=== PATIENT | male | born 1955 | race Hispanic/Latino ===

== ENCOUNTER 2017-07-10 13:22 | Inpatient (IN) | payer OTHER, SELFPAY ==
[2017-07-10 14:43] LABS: Troponin I 0.011 ng/mL (< 0.028)
[2017-07-10 16:10] LABS: #Eosinphils 0.1 thou/uL (0.0-0.7); #Lymphocytes 0.9 thou/uL (1.20-3.40); #Monocytes 0.6 thou/uL (0.11-0.59); #Neutrophils 4.3 thou/uL (1.40-6.50); %Basophils 0.4 % (0.0-1.0); %Eosinophils 1.2 % (0.0-10.0); %Lymphocytes 15.7 % (21.0-51.0); %Monocytes 9.6 % (0.0-10.0); Hematocrit 40.6 % (42.0-52.0); Mean Platelet Volume 9.8 fL (7.4-10.4); Red Blood Cell (RBC) Count 4.14 mill/uL (4.70-6.10); White Blood Cell (WBC) Count 5.9 thou/uL (4.8-10.8)
[2017-07-10 16:20] LABS: ALT (SGPT) 28 U/L (8-55); AST (SGOT) 43 U/L (5-34); Alkaline Phosphatase 169 U/L (40-150); Anion Gap 14 mmol/L (10-20); BUN (Urea Nitrogen) 11 mg/dL (8.4-25.7); Bilirubin, Total 0.7 mg/dL (0.2-1.2); Calc. Creatinine Clearance 0 mL/min (70-130); Calcium 7.9 mg/dL (7.8-10.44); Carbon Dioxide 18 mmol/L (23-31); Chloride 94 mmol/L (98-107); Estimated GFR-MDRD Greater than 90; Globulin 2.8 g/dL (2.4-3.5); Protein, Total 6.1 g/dL (5.8-8.1)
--- NOTE | 2017-07-10 16:41 | HP ---
PRIMARY CARE PHYSICIAN: [facility] call admission. REASON FOR ADMISSION: Transfer from [facility] for hypertensive urgency and severe hyponatremia. HISTORY OF PRESENT ILLNESS: A 61-year-old male, who has alcoholism history, who went to [facility] with complaint of dizziness, headache, nausea, vomiting. Patient was also having vague epigastric discomfort. He was feeling hiccups and he was inducing vomiting. Patient was also feeling weak and tired. Patient reports that he is drinking almost 5-7 beers on a daily basis. His last drink was last night. He denies any melena or hematochezia. He denies any hematemesis. He denies any abdominal distention, but he does report some vague epigastric discomfort. He denies any fever or chills. He denies any UTI symptoms. He is not taking any NSAIDs. When he went to [facility], his blood pressure was very high. He was given parenteral blood pressure medication. After that, blood pressure was somewhat improved. He was transferred to our hospital for higher level of care. When he presented to our emergency room, his blood pressure already improved, but he required one dose of hydralazine. The patient is also given aspirin. REVIEW OF SYSTEMS: The following complete review of systems was negative, unless otherwise mentioned in the HPI or below: Constitutional: Weight loss or gain, ability to conduct usual activities. Skin: Rash, itching. Eyes: Double vision, pain. ENT/Mouth: Nose bleeding, neck stiffness, pain, tenderness. Cardiovascular: Palpitations, dyspnea on exertion, orthopnea. Respiratory: Shortness of breath, wheezing, cough, hemoptysis, fever, or night sweats. Gastrointestinal: Poor appetite, abdominal pain, heartburn, nausea, vomiting, constipation, or diarrhea. Genitourinary: Urgency, frequency, dysuria, nocturia. Musculoskeletal: Pain, swelling. Neurologic/Psychiatric: Anxiety, depression. Allergy/Immunologic: Skin rash, bleeding tendency. Please see my HPI for pertinent positives and negatives. All other review of systems reviewed and negative except as mentioned in the HPI. 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 PAST SURGICAL HISTORY: Left nephrectomy in 2012, laparotomy required for small- bowel obstruction. PAST PSYCHIATRIC HISTORY: Reviewed and negative. SOCIAL HISTORY: Patient is drinking about 5-7 beers on a daily basis. He smokes about half-pack per day. He lives at home with his family. He denies any other illicit drug abuse. FAMILY HISTORY: No strong family history of CAD, CVA or cancer. ALLERGIES: No known drug allergies. CURRENT HOME MEDICATIONS: The patient is not taking any prescribed or non- prescribed medication. The patient was discharged from the hospital on following medications, but he is not taking those medications; amlodipine 5 mg p.o. daily, folic acid 1 mg p.o. daily, multivitamin 1 tablet p.o. daily, thiamine 100 mg p.o. daily, Catapres patch transdermal every week. EMERGENCY ROOM COURSE: [facility] course reviewed. In our emergency room, patient is receiving IV fluid with NS, aspirin 324 mg, and hydralazine 10 mg. PHYSICAL EXAMINATION: VITAL SIGNS: On arrival, blood pressure 175/99, pulse 99, respiratory rate 22, temperature 98.0, saturation 96% on room air, weight 56.7 kilograms. GENERAL: Patient is currently alert, awake, no obvious acute distress. HEENT: Head: Normocephalic and atraumatic. Eyes: Pupils round and reactive to light. Extraocular muscles intact. ENT: Oropharynx within normal limits. Dry mucous membranes, no oral lesions, no pharyngeal erythema, no exudate. NECK: Supple. Range of motion is normal. No meningeal signs of irritation. LUNGS: Clear to auscultation without any rhonchi or rales. CARDIAC: S1, S2 regular, tachycardia, no murmur, no gallop, no rub. ABDOMEN: Soft. Epigastric discomfort, bowel sounds present, nontender, nondistended. No organomegaly, no mass, no suprapubic tenderness. BACK: Unremarkable, no CVA tenderness. EXTREMITIES: Upper extremity passive movement of all joints are normal. Lower extremities: No edema. Good peripheral pulsation. SKIN: No skin rash. HEMATOLOGICAL SYSTEM: No lymphadenopathy. PSYCHIATRIC: Anxious affect. SIGNIFICANT LABS: 1. CBC: WBC 4.9, hemoglobin 13.6, platelets 112. BMP: Sodium 119, potassium 3.9, chloride 90, carbon dioxide 19, anion gap 14, BUN 9.8, creatinine 0.7, glucose 91, calcium 8.3. 2. LFT: Bilirubin 0.6, alkaline phosphatase 94, AST 52, ALT 36, albumin 3.5, lipase 91. CK 47, CK-MB 2.4, troponin I less than 0.010, BNP 281. ASSESSMENT AND PLAN: 1. Severe symptomatic hyponatremia. 2. Hypertensive urgency. 3. Alcoholism. 4. Alcohol withdrawal syndrome. 5. Mild thrombocytopenia. 6. Epigastric abdominal pain. 7. Nausea and vomiting. 8. Dehydration. 9. Tobacco abuse disorder. PLAN: Admission to telemetry floor, banana bag 100 mL per hour, followed by NS 100 mL per hour, Pepcid 20 mg IV b.i.d., Reglan 10 mg q.6 hourly p.r.n., Zofran 4 mg q.6 hourly p.r.n. We will get abdomen ultrasound, right upper quadrant, to rule out any pathology. We will get x-ray of abdomen to rule out any acute process. We will check magnesium, phosphorus, and repeat labs today and tomorrow. We will watch for alcohol withdrawal syndrome. We will start with clear liquid diet and advance diet as tolerated. Deep vein thrombosis prophylaxis, Lovenox 40 mg subcu daily; gastrointestinal prophylaxis, Pepcid 20 mg IV b.i.d. CODE STATUS: The patient is full code. Disposition and plan based on clinical course. We will also send hyponatremia workup. [facility]
[2017-07-10] MEDS ORDERED: Sodium Chloride 0.9% 1,000 ML IV SCH (17:38)
[2017-07-10] MEDS ORDERED: Ondansetron HCl/PF 4 MG/2 ML Vial IVP PRN ×2 (17:38→18:25)
[2017-07-10] MEDS ORDERED: Ondansetron ODT 4 MG TAB SL PRN (17:38)
[2017-07-10 17:52] LABS: Troponin I 0.012 ng/mL (< 0.028)
[2017-07-10] MEDS ORDERED: Loperamide HCl 2 MG CAP PO PRN (18:25)
[2017-07-10] MEDS ORDERED: Diabetic Tussin 200 MG/10 ML UDCUP PO PRN (18:25)
[2017-07-10] MEDS ORDERED: Lorazepam 1 MG TAB PO PRN (18:25)
[2017-07-10] MEDS ORDERED: Zolpidem Tartrate 5 MG TAB PO PRN (18:25)
[2017-07-10] MEDS ORDERED: Loratadine 10 MG TAB PO PRN (18:25)
[2017-07-10] MEDS ORDERED: cloNIDine HCl 0.1 MG TAB PO PRN (18:25)
[2017-07-10] MEDS ORDERED: Ondansetron ODT 4 MG TAB PO PRN (18:25)
[2017-07-10] MEDS ORDERED: Sodium Chloride 0.65% Nasal 44 ML BOT EA NARE PRN (18:25)
[2017-07-10] MEDS ORDERED: Artificial Tears 18 DROP/0.9 ML EA EYE PRN (18:25)
[2017-07-10] MEDS ORDERED: Chloraseptic Spray 180 ml Bottle PO PRN (18:25)
[2017-07-10] MEDS ORDERED: Mag-Al 1200 mg/1200 mg/30 ML UDCUP PO PRN (18:25)
[2017-07-10] MEDS ORDERED: Eucerin (Mineral Oil/Petrolatum,White) 30 gm Jar TOP PRN (18:25)
[2017-07-10] MEDS ORDERED: Acetaminophen 325 MG TAB PO PRN (18:25)
[2017-07-10] MEDS ORDERED: Senokot 8.6 MG TAB PO PRN (18:25)
[2017-07-10] MEDS ORDERED: Metoclopramide HCl 10 MG/2 ML VIAL IVP PRN (18:25)
[2017-07-10] MEDS ORDERED: HYDROcodone/Acetaminophen 5/325 mg Tablet PO PRN (18:25)
[2017-07-10] MEDS ORDERED: Calcium Carbonate 500 MG ChewTAB PO PRN (18:25)
[2017-07-10] MEDS ORDERED: Milk Of Magnesia 30 ML UDCUP PO PRN (18:25)
[2017-07-10] MEDS: Sodium Chloride 0.9% 1,000 ML IV SCH (18:53)
[2017-07-10 19:41] LABS: Troponin I 0.014 ng/mL (< 0.028)
[2017-07-10 20:05] VITALS: BMI 20.7
[2017-07-10] MEDS: Famotidine/PF 20 mg/2ml Vial SLOW IVP SCH (20:53)
[2017-07-10] MEDS ORDERED: Multivitamins, Adult 10 ML, Folic Acid 1 MG, Thiamine HCl 100 MG in Dextrose 5 %-0.45 %... IV SCH ×4 (21:00)
--- NOTE | 2017-07-10 21:06 | RAD ---
AP ABDOMINAL RADIOGRAPH 07/10/17 HISTORY: Nausea and vomiting. FINDINGS: There is an overall nonspecific bowel gas pattern. Degenerative changes seen in the spine. There are calcifications overlying the pelvis bilaterally, likely related to combination of phleboliths and v ascular type calcifications. Metallic density overlies the lateral left hip which is probably relate d to overlying artifact and may represent overlying coin. Clinical correlation is recommended. IMPRESSION: Nonspecific bowel gas pattern. POS: KARIN
[2017-07-10 22:40] LABS: Bilirubin Negative (Negative); Blood, Urine Negative (Negative); Glucose, Urine (Dipstick) Negative (Negative); Ketone, Urine Trace mg/dL (Negative); Nitrite Negative (Negative); Protein, Urine (Dipstick) 300 mg/dL (Neg-Trace); Urobilinogen 0.2 mg/dL (0.2-1.0)
[2017-07-10 22:43] LABS: Bacteria/HPF None Seen HPF (None Seen); Hyaline Casts/LPF 0-3 HYALINE CAST LPF (0-3 Hyaline); RBC/HPF 0-3 HPF (0-3); Squamous Epithelial None Seen HPF (0-3); WBC/HPF None Seen HPF (0-3)
[2017-07-11 06:02] LABS: ALT (SGPT) 24 U/L (8-55); AST (SGOT) 35 U/L (5-34); Alkaline Phosphatase 147 U/L (40-150); Anion Gap 10 mmol/L (10-20); BUN (Urea Nitrogen) 11 mg/dL (8.4-25.7); Bilirubin, Total 0.9 mg/dL (0.2-1.2); Calc. Creatinine Clearance 85 mL/min (70-130); Calcium 7.9 mg/dL (7.8-10.44); Carbon Dioxide 19 mmol/L (23-31); Chloride 102 mmol/L (98-107); Estimated GFR-MDRD Greater than 90; Globulin 2.6 g/dL (2.4-3.5); Magnesium 1.8 mg/dL (1.6-2.6); Protein, Total 5.5 g/dL (5.8-8.1)
[2017-07-11 06:09] LABS: #Eosinphils 0.1 thou/uL (0.0-0.7); #Lymphocytes 0.8 thou/uL (1.20-3.40); #Monocytes 0.4 thou/uL (0.11-0.59); #Neutrophils 2.2 thou/uL (1.40-6.50); %Basophils 0.4 % (0.0-1.0); %Eosinophils 2.5 % (0.0-10.0); %Lymphocytes 21.5 % (21.0-51.0); Mean Platelet Volume 9.4 fL (7.4-10.4); Red Blood Cell (RBC) Count 3.35 mill/uL (4.70-6.10); White Blood Cell (WBC) Count 3.5 thou/uL (4.8-10.8)
--- NOTE | 2017-07-11 08:35 | ULT ---
ULTRASOUND ABDOMEN LIMITED: (RIGHT UPPER QUADRANT) HISTORY: A 61-year-old male with elevated liver enzymes. FINDINGS: The gallbladder has normal wall thickness and has no evidence of gallstones or sludge. The hepatic echogenicity is normal. The right kidney has normal echogenicity and has no hydronephrosis. The pa ncreas is visualized, although ultrasound is relatively insensitive for pancreatic pathology compare d to CT and MRI. There is no biliary dilation. The common duct caliber is 4 mm. IMPRESSION: Normal. merlin [] POS: KARIN
[2017-07-11] MEDS: Sodium Chloride 0.9% 1,000 ML IV SCH (08:40)
[2017-07-11] MEDS ORDERED: Potassium Chloride 20 MEQ TAB PO SCH (08:45)
[2017-07-11] MEDS ORDERED: FLU VACC QS2017-18 36 mo. & older 0.5 ML SYRINGE IM ONE (09:00)
[2017-07-11] MEDS: Famotidine/PF 20 mg/2ml Vial SLOW IVP SCH ×2 (10:26→20:38)
[2017-07-11] MEDS: Multivitamin W/ Minerals 1 TAB PO SCH (10:27)
[2017-07-11] MEDS: Cyanocobalamin (Vitamin B-12) 1,000 MCG TAB PO SCH (10:27)
[2017-07-11] MEDS: Folic Acid 1 MG TAB PO SCH (10:27)
[2017-07-11] MEDS: Metoprolol Tartrate 25 MG TAB PO SCH ×2 (10:27→20:38)
--- NOTE | 2017-07-11 13:01 | PDOC.PN ---
- Subjective Encounter Start Date: 07/11/17 Encounter Start Time: 08:45 -: old records requested/rev Patient seen and examined. No new complaints. No overnight events - Objective Resuscitation Status: Resuscitation Status FULL:Full Resuscitation MAR Reviewed: Yes Vital Signs & Weight: Vital Signs (12 hours) Temp Pulse Resp BP BP Pulse Ox 07/11/17 04:00 98.6 F 84 16 168/81 H 168/81 H 98 Weight Weight 123 lb I&O: 07/10/17 07/11/17 07/12/17 06:59 06:59 06:59 Intake Total 1460 Output Total 1675 Balance -215 Result Diagrams: 07/11/17 05:33 07/11/17 05:33 Radiology Reviewed by me: Yes EKG Reviewed by me: Yes Phys Exam - Physical Examination Constitutional: NAD HEENT: PERRLA, moist MMs, sclera anicteric Neck: no JVD, supple Respiratory: no wheezing, no rales, no rhonchi Cardiovascular: RRR, no significant murmur, no rub Gastrointestinal: soft, non-tender, no distention, positive bowel sounds Musculoskeletal: no edema, pulses present Neurological: non-focal, normal sensation, moves all 4 limbs Lymphatic: no nodes Psychiatric: normal affect, A&O x 3 Skin: no rash, normal turgor Dx/Plan (1) Epigastric abdominal pain Code(s): R10.13 - EPIGASTRIC PAIN Status: Resolved (2) Hyponatremia Code(s): E87.1 - HYPO-OSMOLALITY AND HYPONATREMIA Status: Acute (3) Nausea & vomiting Code(s): R11.2 - NAUSEA WITH VOMITING, UNSPECIFIED Status: Resolved (4) Chronic alcoholism Code(s): F10.20 - ALCOHOL DEPENDENCE, UNCOMPLICATED Status: Chronic Comment : (5) HTN (hypertension) Code(s): I10 - ESSENTIAL (PRIMARY) HYPERTENSION Status: Chronic Comment: (6) Macrocytic anemia Code(s): D53.9 - NUTRITIONAL ANEMIA, UNSPECIFIED Status: Chronic (7) Thrombocytopenia Code(s): D69.6 - THROMBOCYTOPENIA, UNSPECIFIED Status: Chronic (8) Tobacco dependence Code(s): F17.200 - NICOTINE DEPENDENCE, UNSPECIFIED, UNCOMPLICATED Status: Chronic Comment: - Plan cont current plan of care * will add metoprolol * add lisinopril * DC banana bag * start oral folic acid, thiamin, B12, theragran * medication reviewed as below * symptomatic treatment * DC tele * transfer to medical * expecting discharge to home tomorrow. * counselled extensively to quit alcohol and tobacco Review of Systems - Review of Systems ENT: negative: Ear Pain, Ear Discharge, Nose Pain, Nose Discharge, Nose Congestion, Mouth Pain, Mouth Swelling, Throat Pain, Throat Swelling, Other Respiratory: negative: Cough, Dry, Shortness of Breath, Hemoptysis, SOB with Excertion, Pleuritic Pain, Sputum, Wheezing Cardiovascular: negative: Chest Pain, Palpitations, Orthopnea, Paroxysmal Noc. Dyspnea, Edema, Light Headedness, Other Gastrointestinal: negative: Nausea, Vomiting, Abdominal Pain, Diarrhea, Constipation, Melena, Hematochezia, Other Genitourinary: negative: Dysuria, Frequency, Incontinence, Hematuria, Retention , Other Musculoskeletal: negative: Neck Pain, Shoulder Pain, Arm Pain, Back Pain, Hand Pain, Leg Pain, Foot Pain, Other Skin: negative: Rash, Lesions, Brennan, Bruising, Other - Medications/Allergies Allergies/Adverse Reactions: Allergies Allergy/AdvReac Type Severity Reaction Status Date / Time No Known Drug Allergies Allergy Verified 07/10/17 20:14 Medications: Current Medications Acetaminophen (Tylenol) 650 mg PO Q4H PRN PRN Reason: Headache/Fever or Pain Hydrocodone Bitart/Acetaminophen (Munising 5/325) 1 tab PO Q4H PRN PRN Reason: Moderate Pain (4-6) Al Hydroxide/Mg Hydroxide (Maalox) 30 ml PO Q6H PRN PRN Reason: Heartburn or Indigestion Artificial Tears (Tears Naturale) 0 drop EA EYE PRN PRN PRN Reason: Dry Eyes Calcium Carbonate (Tums) 1,000 mg PO Q4H PRN PRN Reason: Heartburn or Indigestion Clonidine HCl (Catapres) 0.1 mg PO Q4H PRN PRN Reason: Systolic BP > 180 Cyanocobalamin (Vitamin B-12) 1,000 mcg PO DAILY [facility] Last Admin: 07/11/17 10:27 Dose: 1,000 mcg Famotidine (Pepcid) 20 mg SLOW IVP Q12HR [facility] Last Admin: 07/11/17 10:26 Dose: 20 mg Folic Acid (Folvite) 1 mg PO DAILY [facility] Last Admin: 07/11/17 10:27 Dose: 1 mg Guaifenesin (Robitussin Sf) 200 mg PO Q4H PRN PRN Reason: Cough Hydralazine HCl (Apresoline) 10 mg SLOW IVP Q4H PRN PRN Reason: Systolic BP > 180 Iron/Minerals/Multivitamins (Theragran M) 1 tab PO DAILY [facility] Last Admin: 07/11/17 10:27 Dose: 1 tab Loperamide HCl (Imodium) 2 mg PO PRN PRN PRN Reason: Diarrhea/Loose Stools Loratadine (Claritin) 10 mg PO DAILYPRN PRN PRN Reason: Sinus Symptoms Lorazepam (Ativan) 1 mg PO Q4H PRN PRN Reason: Anxiety/Agitation Magnesium Hydroxide (Milk Of Magnesium) 30 ml PO DAILYPRN PRN PRN Reason: Constipation Metoclopramide HCl (Reglan) 10 mg IVP Q6H PRN PRN Reason: Nausea/Vomiting Metoprolol Tartrate (Lopressor) 25 mg PO BID [facility] Last Admin: 07/11/17 10:27 Dose: 25 mg Mineral Oil/White Petrolatum (Eucerin Cream) 0 gm TOP BIDPRN PRN PRN Reason: Dry Skin Ondansetron HCl (Zofran Odt) 4 mg PO Q6H PRN PRN Reason: Nausea/Vomiting Ondansetron HCl (Zofran) 4 mg IVP Q6H PRN PRN Reason: Nausea/Vomiting Phenol (Chloraseptic Hilbert 180 Ml Bot) 0 ml PO PRN PRN PRN Reason: Sore Throat Senna (Senokot) 2 tab PO HSPRN PRN PRN Reason: Constipation Sodium Chloride ([place] Nasal Hilbert 0.65%) 0 ml EA NARE QIDPRN PRN PRN Reason: Nasal Congestion Sodium Chloride (Flush - Normal Saline) 10 ml IVF Q12HR [facility] Last Admin: 07/11/17 10:27 Dose: 10 ml Sodium Chloride (Flush - Normal Saline) 10 ml IVF PRN PRN PRN Reason: Saline Flush Thiamine HCl (Thiamine) 100 mg PO DAILY [facility] Last Admin: 07/11/17 10:27 Dose: 100 mg Zolpidem Tartrate (Ambien) 5 mg PO HSPRN PRN PRN Reason: Insomnia
[2017-07-11] MEDS ORDERED: Lisinopril 10 MG TAB PO SCH (13:15)
[2017-07-11] MEDS ORDERED: Nicotine 14 MG PATCH TOP SCH (22:00)
[2017-07-12 07:43] LABS: #Eosinphils 0.1 thou/uL (0.0-0.7); #Lymphocytes 0.5 thou/uL (1.20-3.40); #Monocytes 0.5 thou/uL (0.11-0.59); #Neutrophils 2.9 thou/uL (1.40-6.50); %Eosinophils 1.7 % (0.0-10.0); %Lymphocytes 13.7 % (21.0-51.0); %Monocytes 11.5 % (0.0-10.0); Hematocrit 36.2 % (42.0-52.0); Mean Platelet Volume 9.6 fL (7.4-10.4); Red Blood Cell (RBC) Count 3.61 mill/uL (4.70-6.10); White Blood Cell (WBC) Count 3.9 thou/uL (4.8-10.8)
[2017-07-12 07:46] LABS: Anion Gap 11 mmol/L (10-20); BUN (Urea Nitrogen) 14 mg/dL (8.4-25.7); Calc. Creatinine Clearance 80 mL/min (70-130); Calcium 8.4 mg/dL (7.8-10.44); Carbon Dioxide 19 mmol/L (23-31); Chloride 107 mmol/L (98-107); Estimated GFR-MDRD Greater than 90
[2017-07-12] MEDS: Famotidine/PF 20 mg/2ml Vial SLOW IVP SCH (08:52)
[2017-07-12] MEDS: Cyanocobalamin (Vitamin B-12) 1,000 MCG TAB PO SCH (08:52)
[2017-07-12] MEDS: Folic Acid 1 MG TAB PO SCH (08:52)
[2017-07-12] MEDS: Metoprolol Tartrate 25 MG TAB PO SCH (08:52)
[2017-07-12] MEDS: Multivitamin W/ Minerals 1 TAB PO SCH (08:52)
[2017-07-12] MEDS ORDERED: Lisinopril 10 MG TAB PO SCH (09:00)
[2017-07-12 09:25] VITALS: BP 176/80; TEMP 97.8
--- NOTE | 2017-07-12 09:34 | DIS ---
PRIMARY CARE PHYSICIAN: [facility] call admission. DATE OF ADMISSION: 07/10/2017 DATE OF DISCHARGE: 07/12/2017 DISCHARGE DISPOSITION: Home. PRIMARY DISCHARGE DIAGNOSES: 1. Severe hyponatremia due to beer potomania, improved. 2. Uncontrolled hypertension due to medication noncompliance. 3. Nausea and vomiting due to alcohol abuse, improved. 4. Epigastric abdominal pain, likely due to gastritis, improved. SECONDARY DISCHARGE DIAGNOSES: Tobacco abuse disorder, alcohol abuse disorder, chronic thrombocytopenia, macrocytic anemia, history of hypertension and medical noncompliance. PRIMARY PROCEDURE/OPERATION: None. RADIOLOGICAL INVESTIGATION: Abdomen x-ray was normal. Chest x-ray was normal. Abdominal ultrasound was normal. SIGNIFICANT LABS: WBC 3.9, hemoglobin 12.0, MCV 100, platelets 93. Sodium 133 , potassium 3.6, BUN 14, carbon dioxide 19, creatinine 0.76, calcium 8.4, AST 35 , ALT 24, alkaline phosphatase 147, albumin 2.9, TSH 3.62. Serum cortisol 12.4. Cardiac enzymes negative x3. Urinalysis normal. DISCHARGE MEDICATIONS: Metoprolol 25 mg p.o. b.i.d., lisinopril 10 mg p.o. b.i.d., vitamin B12 1000 mcg p.o. daily, Pepcid 20 mg p.o. b.i.d., folic acid 1 mg p.o. daily, multivitamin 1 tablet p.o. daily, MiraLax 17 grams p.o. daily, thiamine 100 mg p.o. daily, tramadol 50 mg p.o. q.6 hourly p.r.n. CONTRAINDICATIONS: None. CODE STATUS: FULL CODE. INPATIENT CONSULTANTS: None. ALLERGIES: No known drug allergies. DISCHARGE PLAN: Post hospital, the patient is advised to follow up with primary care physician for outpatient treatment. HOSPITAL COURSE: The patient is a 61-year-old male with the above mentioned medical problems who is noncompliant and he is not taking any medication and he continued to drink alcohol heavily. He went to other emergency room for nausea , vomiting, epigastric abdominal pain and he was transferred to our hospital. His sodium on admission was 119 and that was related with beer potomania. This patient also had hypertension and we started during this admission metoprolol and lisinopril. He was symptomatically treated with Pepcid and Zofran while in hospital with significant clinical improvement. He was initially admitted to telemetry floor for observation, but subsequently when he did not have any cardiac etiology we discontinued the telemetry floor and moved him to medical floor. His blood pressure was not still well controlled, but we are adjusting blood pressure medication here today as well. He is completely asymptomatic. He does not have any nausea, vomiting. He does not have any epigastric abdominal pain. As long as he will take his medication and follow ups with primary care physician and he will be fine. As well, he is given counseling to avoid tobacco and alcohol product. Today, I saw this patient at bedside personally and examined. VITAL SIGNS: His temperature 98.1, blood pressure 180/87, pulse 77, respiratory rate 18, saturation 97% on room air, weight 123 pounds. GENERAL: The patient is currently alert, awake, no acute distress. HEAD: Normocephalic, atraumatic. EYES: Pupils round, reactive to light. Extraocular muscle intact. ENT: Oropharynx within normal limits. Moist mucous membranes. No oral lesions. No pharyngeal erythema, no exudate. NECK: Supple, range of motion is normal. LUNGS: Clear to auscultation. ABDOMEN: Soft and benign without any tenderness. NEUROLOGIC: Grossly nonfocal examination. While in hospital, he did not have any withdrawal symptoms. Overall, the patient is medically stable for discharge today. Total time spent on discharge day more than 30 minutes. MTDD
== END 2017-07-12 11:28 | disposition home or self-care (01) | DRG 641 ==
LOC: ERS 13:22 → 2NO 15:00 → T4-A 07-11 17:54
PROVIDERS: ADMIT Internal Medicine; ATTEND Internal Medicine
DX: E87.1 Hypo-osmolality and hyponatremia (principal); D69.6 Thrombocytopenia, unspecified; I10 Essential (primary) hypertension; E86.0 Dehydration; I16.0 Hypertensive urgency; F10.20 Alcohol dependence, uncomplicated; J44.9 Chronic obstructive pulmonary disease, unspecified; F17.210 Nicotine dependence, cigarettes, uncomplicated; Z91.14 Patient's other noncompliance with medication regimen; D52.0 Dietary folate deficiency anemia; K29.70 Gastritis, unspecified, without bleeding
CPT/HCPCS: 36415; 74000; 76705; 80048; 80053; 81001; 82533; 82553; 82570; 83605; 83735; 83930; 83935; 84100; 84300; 84443; 84484; 85025; 90471; 90682; 90732; 93005; 96361; 96374; A4216; G0008; G0009; J0360; J3411; J7042; Q2036; S0028

== ENCOUNTER 2018-10-08 17:44 | Inpatient (IN) | payer OTHER, SELFPAY ==
[2018-10-08] MEDS ORDERED: Propofol 1,000 MG/100 ML VIAL IV ONE (17:46)
[2018-10-08] MEDS ORDERED: Morphine 4 MG/ML VIAL ONE (18:08)
[2018-10-08 18:13] LABS: Actual Bicarbonate (HCO3a) 21.9 mEq/L (22-28); Analyzer IN Cardio ER; Base Excess (BEa) -2.8 mEq/L (-2.0 to +3.0); CO2 Tension 37.9 mmHg (35.0-45.0); Calcium, Ionized 1.06 mmol/L (1.12-1.30); Carboxyhemoglobin (COHb) 5.3 gm% (0.0-3.0); Hemoglobin (Hb) 11.6 g/dL (14.0-18.0); O2 Tension (PaO2) 71.5 mmHg (> 80.0); Potassium - ABG Lab 3.72 mmol/L (3.70-5.30); pH, Arterial 7.38 (7.35-7.45)
[2018-10-08 18:14] LABS: ALV-art Gradient 237.625 (0-20); Puncture Site L.R.
[2018-10-08 18:24] LABS: #Eosinphils 0.1 thou/uL (0.0-0.7); #Lymphocytes 0.7 thou/uL (1.20-3.40); #Monocytes 0.4 thou/uL (0.11-0.59); #Neutrophils 5.7 thou/uL (1.40-6.50); %Basophils 0.5 % (0.0-1.0); %Eosinophils 1.1 % (0.0-10.0); %Lymphocytes 10.4 % (21.0-51.0); Hemoglobin 11.1 g/dL (14.0-18.0); Mean Corpuscular HGB CONC 33.1 g/dL (32.0-36.0); Mean Corpuscular Hemoglobin 29.5 pg (27.0-31.0); Mean Corpuscular Volume 89.2 fL (78.0-98.0); Mean Platelet Volume 9.6 fL (7.4-10.4); Platelet Count 148 thou/uL (130-400); RBC Distribution Width 17.1 % (11.5-14.5); Red Blood Cell (RBC) Count 3.75 mill/uL (4.70-6.10)
[2018-10-08 18:30] LABS: PTT 35.4 SEC (22.9-36.1)
[2018-10-08 18:38] LABS: Prothrombin Time 13.6 SEC (12.0-14.7)
[2018-10-08] MEDS ORDERED: Adacel (T-DAP) 0.5 ML SYRINGE ONE (18:39)
[2018-10-08] MEDS ORDERED: CEFAZOLIN 2 GM/50 ML BAG ONE (18:39)
[2018-10-08 18:44] LABS: ALT (SGPT) 22 U/L (8-55); AST (SGOT) 52 U/L (5-34); Albumin 3.5 g/dL (3.4-4.8); Alkaline Phosphatase 184 U/L (40-150); Anion Gap 15 mmol/L (10-20); BUN (Urea Nitrogen) 15 mg/dL (8.4-25.7); Bilirubin, Total 0.5 mg/dL (0.2-1.2); Calc. Creatinine Clearance 0 mL/min (70-130); Calcium 8.5 mg/dL (7.8-10.44); Carbon Dioxide 19 mmol/L (23-31); Chloride 98 mmol/L (98-107); Estimated GFR-MDRD 63; Globulin 3.2 g/dL (2.4-3.5); Glucose 107 mg/dL (80-115); Potassium 3.9 mmol/L (3.5-5.1); Protein, Total 6.7 g/dL (5.8-8.1); Sodium 128 mmol/L (136-145)
[2018-10-08] MEDS ORDERED: Ondansetron PF 4 MG/2 ML Vial IVP PRN (18:53)
[2018-10-08] MEDS ORDERED: Bisacodyl 10 MG SUPP PR PRN (18:53)
[2018-10-08] MEDS ORDERED: CCU Electrolyte Replacement 1 EACH FS ONE (18:58)
[2018-10-08] MEDS ORDERED: niCARdipine 20MG In NaCl 20 MG/200 ML BAG ONE (19:04)
[2018-10-08 19:34] LABS: Bilirubin Negative (Negative); Blood, Urine Moderate (Negative); Clarity CLEAR (Clear); Glucose, Urine (Dipstick) Negative (Negative); Leukocyte Negative (Negative); Nitrite Negative (Negative); Protein, Urine (Dipstick) 300 mg/dL (Neg-Trace); Specific Gravity, Urine 1.008 (1.002-1.036); Urobilinogen 0.2 mg/dL (0.2-1.0); pH, Urine 6.5 (5.0-9.0)
[2018-10-08 19:36] LABS: Bacteria/HPF None Seen HPF (None Seen); Hyaline Casts/LPF 0-3 HYALINE CAST LPF (0-3 Hyaline); Pathc Cast-AUWi Flag 0.87 (0-2.49); RBC/HPF 0-3 HPF (0-3); Squamous Epithelial 0-3 HPF (0-3); WBC/HPF None Seen HPF (0-3)
[2018-10-08 19:45] LABS: Amphetamine Not Detected (NotDetected); Barbiturates Screen Not Detected (NotDetected); Benzodiazepine Screen Not Detected (NotDetected); Cocaine Metabolite Screen Not Detected (NotDetected); Medtox Control Line Valid? VALID (VALID); Medtox Reader # READER 1; Methadone Not Detected (NotDetected); Methamphetamine Not Detected (NotDetected); Opiate Screen Not Detected (NotDetected); Oxycodone Screen Not Detected (NotDetected); Phencyclidine (PCP) Not Detected (NotDetected); THC/Cannabinoid Screen Not Detected (NotDetected); Tricyclic Screen Not Detected (NotDetected)
--- NOTE | 2018-10-08 20:19 | RAD ---
PORTABLE CHEST: 10/08/18 PROVIDED CLINICAL HISTORY: Respiratory insufficiency. FINDINGS: Comparison is made with the examination performed earlier same date. Endotracheal tube is again noted, the tip of which has migrated somewhat distally from its former pos ition but remains at the level of the lopez. Enteric catheter has been placed. The proximal side hol e lucency of which projects over the lower thoracic spine and the distal tip of which projects over t he expected location of the distal esophagus and could be advanced. Right infrahilar density may refl ect subsegmental atelectasis or pneumonitis. There is no pleural fluid or pneumothorax apparent. IMPRESSION: 1. Enteric catheter positioning as above. 2. Right infrahilar density may reflect subsegmental atelectasis or pneumonitis. Followup is recommen ded. POS: KARIN
[2018-10-08] MEDS ORDERED: Potassium Phosphate 15 MMOL in Sodium Chloride 0.9% 250 ML 250 ML IV PRN (20:46)
[2018-10-08] MEDS ORDERED: Potassium Phosphate 9 MMOL in Sodium Chloride 0.9% 100 ML IVPB PRN (20:46)
[2018-10-08] MEDS ORDERED: CCU ELECTROLYTE REPLACEMENT PROTOCOL FS PRN (20:46)
[2018-10-08] MEDS ORDERED: Magnesium Oxide 400 MG TAB PO PRN ×2 (20:46)
[2018-10-08] MEDS ORDERED: Potassium Chloride 40 MEQ in Sodium Chloride 0.9% 250 ML 250 ML IVPB PRN (20:46)
[2018-10-08] MEDS ORDERED: Magnesium 2 GM/NS 0.9% 100 ML 2 GM in Premix Bag 1 BAG IVPB PRN (20:46)
[2018-10-08] MEDS ORDERED: Potassium Chloride 40 MEQ in Premix Bag 1 BAG IVPB PRN (20:46)
[2018-10-08] MEDS ORDERED: Potassium Phosphate 12 MMOL in Sodium Chloride 0.9% 250 ML 250 ML IV PRN (20:46)
[2018-10-08] MEDS ORDERED: Potassium Chloride 20 MEQ TAB PO PRN (20:46)
--- NOTE | 2018-10-08 21:17 | PDOC.FPRHP ---
- History of Present Illness Chief Complaint: medical management following non-traumatic hemorrhagic CVA History of Present Illness: 63 yr old male with PMH of HTN, medication non-compliance, alcohol abuse who presents to ER after being found slumped over in a bathroom. History is all taken from ER notes/report. Originally there were no family at bedside however upon reexamination couple hours later his daughters are at bedside. They speak with him frequently, but are unsure where he currently lives because he does not know his physical address and recently moved. They report daily alcohol use for many years. Now he likely drinks about 6 beers a day but it used to be much more. He smoke daily. He does not regularly follow up with a doctor or refill his medications. - Allergies/Adverse Reactions Allergies Allergy/AdvReac Type Severity Reaction Status Date / Time No Known Drug Allergies Allergy Verified 07/10/17 20:14 - Home Medications Comments: Unable to obtain medication list. Family reports that he is non compliant with meds. - History PMHx: HTN, left kidney tumor, COPD, daily alcohol abuse PSHx: left nephrectomy, laparotomy for SBO (hx obtained from 2017 H&P) FHx: unable to obtain Social: Daily alcohol use (at least 6 beers a day per family), smokes 1 PPD, unknown drug use. - Review of Systems ROS unobtainable: due to endotracheal tube (patient unarrousable) - Vital signs BP: [] HR: [] RR: [] Tmax: [] Pox: []% on [] Wt: [] - Physical Exam -Constitutional: intubated, unresponsive not on sedation Neck: supple, trachea midline Heart: RRR, normal S1/S2, no murmurs/rubs/gallops Lungs: CTAB, no respiratory distress, good air movement, no wheezing Abdomen: soft, bowel sounds present Musculoskeletal: normal structure, normal tone -Neurological: bilateral positive babinski (upgoing), 2-3 + clonus bilaterally, pinpoint pupils , appears to have decerebrate posturing Skin: no rash/lesions, capillary refill <2 seconds FMR H&P: Results - Labs Result Diagrams: 10/08/18 18:12 10/08/18 18:12 Lab results: WBC 7.0 thou/uL (4.8-10.8) 10/08/18 18:12 Hgb 11.1 g/dL (14.0-18.0) L 10/08/18 18:12 Hct 33.5 % (42.0-52.0) L 10/08/18 18:12 MCV 89.2 fL (78.0-98.0) 10/08/18 18:12 Plt Count 148 thou/uL (130-400) 10/08/18 18:12 Neutrophils % 82.0 % (42.0-75.0) H 10/08/18 18:12 ABG pH 7.38 (7.35-7.45) 10/08/18 18:09 ABG pCO2 37.9 mmHg (35.0-45.0) 10/08/18 18:09 ABG pO2 71.5 mmHg (> 80.0) 10/08/18 18:09 Sodium 128 mmol/L (136-145) L 10/08/18 18:12 Potassium 3.9 mmol/L (3.5-5.1) 10/08/18 18:12 Chloride 98 mmol/L (98-107) 10/08/18 18:12 Carbon Dioxide 19 mmol/L (23-31) L 10/08/18 18:12 BUN 15 mg/dL (8.4-25.7) 10/08/18 18:12 Creatinine 1.16 mg/dL (0.7-1.3) 10/08/18 18:12 Glucose 107 mg/dL (80-115) 10/08/18 18:12 Calcium 8.5 mg/dL (7.8-10.44) 10/08/18 18:12 Total Bilirubin 0.5 mg/dL (0.2-1.2) 10/08/18 18:12 AST 52 U/L (5-34) H 10/08/18 18:12 ALT 22 U/L (8-55) 10/08/18 18:12 Alkaline Phosphatase 184 U/L (40-150) H 10/08/18 18:12 Serum Total Protein 6.7 g/dL (5.8-8.1) 10/08/18 18:12 Albumin 3.5 g/dL (3.4-4.8) 10/08/18 18:12 Urine Ketones Negative mg/dL (Negative) 10/08/18 19:00 Urine Blood Moderate (Negative) H 10/08/18 19:00 Urine Nitrite Negative (Negative) 10/08/18 19:00 Ur Leukocyte Esterase Negative (Negative) 10/08/18 19:00 Urine RBC 0-3 HPF (0-3) 10/08/18 19:00 Urine WBC None Seen HPF (0-3) 10/08/18 19:00 Ur Squamous Epith Cells 0-3 HPF (0-3) 10/08/18 19:00 Urine Bacteria None Seen HPF (None Seen) 10/08/18 19:00 FMR H&P: A/P - Plan Disposition/LOS: 63 yr old male non-traumatic intracerebral hemorrhage likely 2/2 severe uncontrolled HTN -mgmt per neurosurgery -patient currently on cardene drip HTN -currently on cardene drip -monitor overnight, with BP goals per neurosurgery Alcohol abuse -currently non responsive and not on sedation -will monitor for signs of withdrawal - BAL is undetectable elevated ALT -likely 2/2 alcohol abuse -consider checking HIV, hep C if becomes clinically relevant Code Status: FULL Diet: NPO PCP: unknown DVT ppx: anticoagulant contraindicated, will apply SCDs Addendum - Attending - Attending Attestation Date/Time: 10/08/18 [id number] I personally evaluated the patient and discussed the management with Dr. Yee I agree with the History, Examination, Assessment and Plan documented above with any addition or exceptions noted below- Consulted by neurosurgery for assistance with medical management of chronic medical problems of this 63 yo male with h/o HTN and alcohol abuse who was transferred from [facility] after being found unresponsive in bathroom. Evaluation at [facility] showed a large right basal ganglia hemorrhage extending into right lateral ventricle and 3rd and 4th ventricle. Patient also hypertensive at [facility] and intubated upon transfer. PMH/PSH/Meds/All reviewed and agree with resident's documentation. Afebrile BP 163/80 P75 98% Exam repeated by me and agree with resident's findings including bilateral upgoing Babinski's, clonus in LE. Labs: WBC=7.0, H/H=11.1/33.5, Umh=145, Fz=461, K=3.9, Cl=98, CO2=19, BUN/ Cr=15/1.16, Gluc= 107, AST/ALT= 15/22, Alk Phos-184, UDS negative, ETOH<10A A/P: 1) Hemorrhagic CVA s/p ventriculostomy placement- plans/management as per neurosurgery; suspect poor prognosis. 2) HTN - continue cardene drip with goal of SBP<160, 3) h/o EtOH abuse- monitor for withdrawal.
[2018-10-08] MEDS: Famotidine/PF 20 mg/2ml Vial SLOW IVP SCH (21:27)
[2018-10-08] MEDS: Sodium Chloride 0.9% 1,000 ML IV SCH (21:32)
[2018-10-08 21:38] LABS: Acetaminophen Less than 6.0 mcg/mL (10.0-30.0); Alcohol Less than 10 mg/dL (Less than 10); Salicylate Less than 8.0 mg/dL (15.0-30.0)
--- NOTE | 2018-10-08 21:55 | HP ---
HISTORY OF PRESENT ILLNESS: Mr. Felton is a 63-year-old man who is a transfer from [facility] via EMS after being found down by a friend in the bathroom at home. At that time, he was hemiparetic on the left and increasingly somnolent. Ultimately, he was intubated in [place]. CT scan performed in that emergency department revealed a large right-sided basal ganglia hemorrhage with extension into the right lateral ventricle, the third ventricle, and fourth ventricle, all three of these were completely cast with blood and hydrocephalic. The patient is in minor extension of blood into the left lateral ventricle as well. There was no midline shift to speak of, that would be obstructive hydrocephalus hydrocephalus, is likely increasing with intracranial pressure. There is no known medical history other than that he is hypertensive. No family was able to be contacted. No friends or family were at bedside upon my arrival to the emergency department. The patient is intubated on the bed. He had had some sedatives, roughly 45 minutes prior to his arrival, but since being in the department, nothing else. Again, past medical history unobtainable. Medical history including surgeries, medications, allergies, and otherwise also unobtainable. PHYSICAL EXAMINATION: The patient's pupils are equally round, but constricted, and unreactive. He does maintain a corneal reflex gag reflex and cough reflex. He does not open his eyes at any point. He does not move his upper extremities to any deep stimulus. He does withdraw bilateral lower extremities to deep pain, specifically pressure. ASSESSMENT: Intracerebral hemorrhage and intraventricular extension of hemorrhage. PLAN: At this time we will need emergent placement of external ventricular catheter, and will need admission to the ICU with every one hour neuro checks. Head of bed elevated at 30 degrees. Pulmonary, Critical Care, and hospitalist service will be consulted for management. We will continue to try to reach family for better detailed medical history. Coagulation labs were being run in the emergency department as we do not know if he is on any blood thinners or not. No other intervention is planned. Job ID: [id number]
--- NOTE | 2018-10-08 23:51 | OP ---
PROCEDURE DESCRIPTION: External ventricular drain placement. INDICATION: Altered mental status, Interventricular hemorrhage, obstructive hydrocephalus. CLINICAL: Ender Whittaker, PAC DESCRIPTION OF PROCEDURE: Elyse's point was identified in the right frontal scalp. This region was marked and infiltrated with 1% lidocaine. The area was then prepped and draped. Surgical procedure was followed from this point on. 15 blade scalpel was used to incise the scalp at Elyse's point down to the periosteum. Cranial twist drill was used to create a bur hole at this point of incision. The dura was pierced with a blunt object and ventricular catheter was placed at a depth of 6 cm. There was slow egress of bety blood via the catheter which was pulsatile within the tubing. This was adhered to the scalp with Nylon suture. This was hooked up to a Mo drain at 5 cm of water. Level to the tragus. Incision was closed with 3-0 Resolon sutures. Patient tolerated the procedure well with no complication. [facility]ITAL[facility]
[2018-10-09] MEDS: CEFAZOLIN 2 GM/50 ML-DEXTROSE 2 GM in Premix Bag 1 BAG IVPB SCH ×3 (01:38→18:08)
[2018-10-09] MEDS ORDERED: CEFAZOLIN 1 GM VIAL SLOW IVP SCH (03:00)
[2018-10-09 05:36] LABS: Anion Gap 11 mmol/L (10-20); BUN (Urea Nitrogen) 16 mg/dL (8.4-25.7); Calc. Creatinine Clearance 47 mL/min (70-130); Calcium 7.8 mg/dL (7.8-10.44); Carbon Dioxide 21 mmol/L (23-31); Chloride 101 mmol/L (98-107); Estimated GFR-MDRD 60; Glucose 89 mg/dL (80-115); Potassium 3.3 mmol/L (3.5-5.1); Sodium 130 mmol/L (136-145)
[2018-10-09 06:30] LABS: #Lymphocytes 0.5 thou/uL (1.20-3.40); #Monocytes 0.5 thou/uL (0.11-0.59); %Basophils 0.4 % (0.0-1.0); %Eosinophils 0.7 % (0.0-10.0); %Lymphocytes 7.9 % (21.0-51.0); %Monocytes 7.6 % (0.0-10.0); %Neutrophils 83.5 % (42.0-75.0); Hemoglobin 9.4 g/dL (14.0-18.0); Mean Corpuscular HGB CONC 32.6 g/dL (32.0-36.0); Mean Corpuscular Hemoglobin 28.8 pg (27.0-31.0); Mean Corpuscular Volume 88.3 fL (78.0-98.0); Mean Platelet Volume 10.4 fL (7.4-10.4); Platelet Count 120 thou/uL (130-400); RBC Distribution Width 17.2 % (11.5-14.5); Red Blood Cell (RBC) Count 3.27 mill/uL (4.70-6.10)
--- NOTE | 2018-10-09 06:30 | PDOC.FM ---
- Subjective Subjective: This morning patient is un-responsive, on ventilator, no sedation currently. He was brought in after being found down. Family and chart show history of alcoholism. Family also reported history of non-compliance with medication. Family is not at bedside this AM. Daughter was present last night. - Objective Vital Signs & Weight: Vital Signs (12 hours) Temp Resp Pulse Ox 10/09/18 04:00 98.4 F 21 H 10/09/18 02:00 19 10/09/18 00:00 98.2 F 16 10/08/18 22:00 16 10/08/18 20:00 98.3 F 19 97 Weight Weight 53.8 kg Most Recent Monitor Data Heart Rate from ECG 100 NIBP 143/68 NIBP BP-Mean 93 Respiration from ECG 22 SpO2 99 I&O: 10/07/18 10/08/18 10/09/18 06:59 06:59 06:59 Intake Total 50 Output Total 1087 Balance -1037 Result Diagrams: 10/09/18 04:58 10/09/18 04:58 Phys Exam - Physical Examination Respiratory: clear to auscultation bilateral on ventilator Cardiovascular: RRR, no significant murmur Gastrointestinal: soft, non-tender, no distention, positive bowel sounds Musculoskeletal: pulses present non-responsive, upgoing babinski, 3/4 reflexes on lower extremities Skin: cap refill <2 seconds Dx/Plan (1) Basal ganglia hemorrhage Code(s): I61.0 - NONTRAUMATIC INTCRBL HEMORRHAGE IN HEMISPHERE, SUBCORTICAL Status: Acute (2) Hyponatremia Code(s): E87.1 - HYPO-OSMOLALITY AND HYPONATREMIA Status: Acute (3) Chronic alcoholism Code(s): F10.20 - ALCOHOL DEPENDENCE, UNCOMPLICATED Status: Chronic (4) HTN (hypertension) Code(s): I10 - ESSENTIAL (PRIMARY) HYPERTENSION Status: Chronic (5) Tobacco dependence Code(s): F17.200 - NICOTINE DEPENDENCE, UNSPECIFIED, UNCOMPLICATED Status: Chronic - Plan Plan: # non-traumatic intracerebral hemorrhage likely 2/2 severe uncontrolled HTN - non-compliant with meds per family - external ventricular drain placed 10/08 - repeat CT this AM, read pending - mgmt per neurosurgery # HTN - patient currently on cardene drip, goal of <160 sbp per neurosurgery -monitor overnight, with BP goals per neurosurgery # Alcohol abuse -currently non responsive and not on sedation - will monitor for signs of withdrawal - BAL is undetectable # elevated ALT -likely 2/2 alcohol abuse -consider checking HIV, hep C if becomes clinically relevant # Hypokalemia - replete PRN # Hyponatremia - monitor Code Status: FULL Diet: NPO PCP: unknown DVT ppx: anticoagulant contraindicated, will apply SCDs Addendum - Attending - Attending Attestation Date/Time: 10/09/18 1025 I personally evaluated the patient and discussed the management with Dr. Parker. I agree with the History, Examination, Assessment and Plan documented above with any addition or exceptions noted below. Consult on case for medical mgmt in patient with COPD, EtOH abuse, and HTN who is here for ICH in the basal ganglia area s/p ventriculostomy placement. CT this morning appears to have further midline shift and NSGY has replaced tube. Continues on Cardene but will work to get BP under control with PO meds. Minimal response, some spontaneous movements though this may represent myoclonic jerks. Prognosis guarded. We will be available to co-manage COPD, EtOH withdrawal (if occurs) and HTN as needed.
[2018-10-09] MEDS ORDERED: Sodium Chloride 0.9% 10 ML ONE ×2 (07:29)
[2018-10-09] MEDS ORDERED: Morphine 4 MG/ML VIAL ONE (07:33)
[2018-10-09 07:54] LABS: Actual Bicarbonate (HCO3a) 19.2 mEq/L (22-28); Calcium, Ionized 1.07 mmol/L (1.12-1.30); Carboxyhemoglobin (COHb) 1.5 gm% (0.0-3.0); Hemoglobin (Hb) 9.5 g/dL (14.0-18.0); O2 Tension (PaO2) 67.6 mmHg (> 80.0); Potassium - ABG Lab 3.47 mmol/L (3.70-5.30)
[2018-10-09 07:55] LABS: ALV-art Gradient 150.575 (0-20); CO2 Tension 25.1 mmHg (35.0-45.0); Puncture Site LRA
[2018-10-09] MEDS: Famotidine/PF 20 mg/2ml Vial SLOW IVP SCH (08:45)
[2018-10-09] MEDS ORDERED: Morphine 4 MG/ML VIAL SLOW IVP SCH (09:00)
--- NOTE | 2018-10-09 09:08 | CT ---
PRELIMINARY REPORT/[facility]/EMERGENTY AFTER-HOURS PROCEDURE CT Head Without Contrast EXAM DATE/TIME: 10/09/2018 3:08 AM CLINICAL HISTORY: 63 years old, male; Condition or disease; Other: Ich follow up; Patient HX: Ich follow up. No compari son or report to send TECHNIQUE: Axial computed tomography images of the head/brain without contrast. COMPARISON: No relevant prior studies available. FINDINGS: Brain: Significant diffuse intraventricular hemorrhage most notably in the right lateral ventricle. S urrounding periventricular edema. There is a shunt catheter via right frontal approach with tip in th e region of the right thalamus. A few scattered intracranial air pockets/pneumocephalus. Ventricles: See above. Bones/joints: Right medial orbital wall/lamina papyracea dehiscence. Sinuses: Right frontal, ethmoid, maxillary sinus opacification. Mastoid air cells: No acute findings. No mastoid effusion. Soft tissues: No acute findings. IMPRESSION: Significant intraventricular hemorrhage with tip of the shunt catheter in the region of the right loan lamus; recommend neurosurgery consult. THIS REPORT CONTAINS FINDINGS THAT MAY BE CRITICAL TO PATIENT CARE. The findings were verbally commun icated via telephone conference with AC OLIVAREZ at 3:42 AM FAMILY SERVICES ASSISTANT on 10/09/2018. The findings were a cknowledged and understood. Thank you for allowing us to participate in the care of your patient. Dictated and Authenticated by: Arun Harris MD 10/09/2018 3:52 AM Central Time ([place] & [place]) FINAL REPORT HEAD CT WITHOUT CONTRAST: Date: 10-09-18 Comparison: 10-08-18 History: Re-evaluate intracranial hemorrhage. FINDINGS: I agree with the preliminary [facility] report. There is a new ventriculostomy tube inserted via a right fr ontal approach, which does not appear to traverse the ventricular system and instead ends in the aaron on of the right thalamus. There is extensive intraventricular hemorrhage within the fourth ventricle, third ventricle, and bilateral lateral ventricles, right greater than left. There is an intraaxial h emorrhage centered in the thalamus/basal ganglia on the right, grossly unchanged. There is opacification of the frontal sinus and anterior ethmoid air cells on the right. No acute oss eous abnormality. IMPRESSION: Intraaxial hemorrhage in the region of the right thalamus/basal ganglia with large volume intraventri cular hemorrhage, similar when compared to prior imaging. Interval placement of ventriculostomy tube on the right which terminates in the region of the thalamus. Code QA POS: KARIN
--- NOTE | 2018-10-09 10:01 | PRG ---
DATE OF SERVICE: 10/09/2018 Mr. Felton presented yesterday with an intraparenchymal hemorrhage with intraventricular extension. He was transferred to our facility from an outside facility. He had early signs of hydrocephalus and a ventriculostomy drain was placed. Today, he remains in the ICU, intubated with a patent drain draining frankly bloody CSF. He does per exhibit spontaneous and at times purposeful movement. He does not open eyes to the stimulation. His condition right now is guarded. I have not yet been contacted or reached family, but I will continue to do so. Neurosurgical plan will be one of ongoing ICP monitoring and drainage. Await further instruction from family members with regard to extent of care. Job ID: [id number]
[2018-10-09] MEDS ORDERED: Carvedilol 6.25 MG TAB PO SCH ×2 (10:15→17:00)
[2018-10-09] MEDS: Sodium Chloride 0.9% 1,000 ML IV SCH (12:39)
--- NOTE | 2018-10-09 16:14 | CON ---
DATE OF CONSULTATION: HISTORY OF PRESENT ILLNESS: A 63-year-old gentleman, status post massive right-sided intracerebral hemorrhage, status post ventriculostomy. The patient has longstanding history of apparently alcohol abuse. He had, apparently they think, nontraumatic cerebral hemorrhage. Apparently, he had fallen and was found on the bathroom with left-sided weakness. He has known history of hypertension. He was started on a Cardene drip, he is on 2.5 mg. PAST MEDICAL HISTORY: 1. History of hypertension. 2. History of alcohol abuse. 3. History of epilepsy. PAST SURGICAL HISTORY: Apparently, some kind of a tumor removed. MEDICATIONS: His list of medicine, at this time, unknown. SOCIAL HISTORY: He drinks alcohol 5 drinks a day. Half pack a day tobacco abuse. During his previous hospitalization in the hospital about a year ago, he was here for hyponatremia from excessive drinking. Events noted from his previous history. Otherwise, previous past surgeries including left nephrectomy in 2011, small bowel obstruction repair. Once again, they are unable to get his history of medication from home. PHYSICAL EXAMINATION: GENERAL: He is responsive on the vent. He is moving his right side, not his left side. VITAL SIGNS: Pulse 77, blood pressure 157/82, saturations 100%, and respiratory rate 14. CHEST: Bilateral rhonchi and crackles. CARDIAC: Normal S1 and S2 . LABORATORY DATA: White count 6,000, H and H 9 and 28, and platelet count 120. His pO2 of 67, pCO2 . Sodium is 130, potassium 3.3. Creatinine 1.21. IMPRESSION: 1. Massive intracranial hemorrhage involving the right thalamus, basal ganglia, large volume of intraventricular hemorrhage. Status post ventriculostomy. 2. Respiratory failure. 3. Left-sided CVA. 4. Hypertension. 5. Alcohol abuse. 6. Tobacco abuse. PLAN: He is not weanable at this stage. We will continue vent support and start nutrition for the next 24 to 48 hours. Empiric neb treatments. Supportive care. Correct electrolytes. This is a 45-minute critical time. Job ID: [id number]
[2018-10-10] MEDS: CEFAZOLIN 2 GM/50 ML-DEXTROSE 2 GM in Premix Bag 1 BAG IVPB SCH ×3 (02:22→17:11)
[2018-10-10 05:30] LABS: #Lymphocytes 0.5 thou/uL (1.20-3.40); #Monocytes 0.4 thou/uL (0.11-0.59); #Neutrophils 5.9 thou/uL (1.40-6.50); %Basophils 0.2 % (0.0-1.0); %Eosinophils 0.1 % (0.0-10.0); %Lymphocytes 6.8 % (21.0-51.0); %Monocytes 6.4 % (0.0-10.0); %Neutrophils 86.5 % (42.0-75.0); Hemoglobin 9.5 g/dL (14.0-18.0); Mean Corpuscular HGB CONC 32.2 g/dL (32.0-36.0); Mean Corpuscular Hemoglobin 29.4 pg (27.0-31.0); Mean Corpuscular Volume 91.3 fL (78.0-98.0); Mean Platelet Volume 10.4 fL (7.4-10.4); Platelet Count 128 thou/uL (130-400); RBC Distribution Width 17.3 % (11.5-14.5); Red Blood Cell (RBC) Count 3.23 mill/uL (4.70-6.10); White Blood Cell (WBC) Count 6.8 thou/uL (4.8-10.8)
[2018-10-10 05:42] LABS: Anion Gap 15 mmol/L (10-20); BUN (Urea Nitrogen) 17 mg/dL (8.4-25.7); Calc. Creatinine Clearance 40 mL/min (70-130); Calcium 8.2 mg/dL (7.8-10.44); Carbon Dioxide 18 mmol/L (23-31); Chloride 106 mmol/L (98-107); Estimated GFR-MDRD 53; Glucose 116 mg/dL (80-115); Potassium 3.7 mmol/L (3.5-5.1); Sodium 135 mmol/L (136-145)
--- NOTE | 2018-10-10 06:10 | PDOC.FM ---
- Subjective Subjective: Patient remains intubated this morning. He is able to squeeze hand on r side on command. Unable to move L side. eyes deviated to R. - Objective Vital Signs & Weight: Vital Signs (12 hours) Temp Pulse Resp BP Pulse Ox 10/10/18 04:00 90.0 F L 16 10/10/18 02:35 88 150/77 H 10/10/18 02:00 18 10/10/18 00:34 86 21 H 100 10/10/18 00:00 99.1 F 15 10/09/18 22:38 83 158/77 H 10/09/18 22:00 25 H 10/09/18 20:00 99.3 F 99 10/09/18 19:51 23 H 10/09/18 18:33 76 166/80 H 10/09/18 18:31 76 16 99 Weight Admit Weight 53.524 kg Weight 51.4 kg Most Recent Monitor Data Heart Rate from ECG 81 NIBP 152/74 NIBP BP-Mean 100 Respiration from ECG 18 SpO2 99 I&O: 10/08/18 10/09/18 10/10/18 06:59 06:59 06:59 Intake Total 1033 2276 Output Total 1142 948 Balance -109 1328 Result Diagrams: 10/10/18 04:44 10/10/18 04:44 Phys Exam - Physical Examination Constitutional: NAD HEENT: moist MMs Respiratory: no wheezing, clear to auscultation bilateral intubated Cardiovascular: RRR, no significant murmur Gastrointestinal: soft, non-tender, no distention, positive bowel sounds Musculoskeletal: no edema, pulses present moves R leg non-purposefully, no movement on L medical coding technician R hand on commands, eyes deviated to R Psychiatric: normal affect, A&O x 3 Skin: no rash, cap refill <2 seconds Dx/Plan (1) Basal ganglia hemorrhage Code(s): I61.0 - NONTRAUMATIC INTCRBL HEMORRHAGE IN HEMISPHERE, SUBCORTICAL Status: Acute (2) Hyponatremia Code(s): E87.1 - HYPO-OSMOLALITY AND HYPONATREMIA Status: Acute (3) Chronic alcoholism Code(s): F10.20 - ALCOHOL DEPENDENCE, UNCOMPLICATED Status: Chronic (4) HTN (hypertension) Code(s): I10 - ESSENTIAL (PRIMARY) HYPERTENSION Status: Chronic (5) Tobacco dependence Code(s): F17.200 - NICOTINE DEPENDENCE, UNSPECIFIED, UNCOMPLICATED Status: Chronic - Plan Plan: # non-traumatic intracerebral hemorrhage likely 2/2 severe uncontrolled HTN - non-compliant with meds per family - external ventricular drain placed 10/08 - repeat CT 10/10 shows increased bleeding - mgmt per neurosurgery # HTN - goal of <160 sbp per neurosurgery - increased carvedilol to 25mg bid - on cardene drip at 3 this AM # Alcohol abuse -currently non responsive and not on sedation - will monitor for signs of withdrawal - BAL is undetectable # elevated ALT -likely 2/2 alcohol abuse -consider checking HIV, hep C if becomes clinically relevant # Hypokalemia - replete PRN # Hyponatremia - monitor Code Status: FULL Diet: NPO PCP: unknown DVT ppx: anticoagulant contraindicated, will apply SCDs Addendum - Attending - Attending Attestation Date/Time: 10/10/18 2152 I personally evaluated the patient and discussed the management with Dr. Parker. I agree with the History, Examination, Assessment and Plan documented above with any addition or exceptions noted below. Patient seen as consult for medical mgmt. BP continues to be elevated despite PO Coreg, will maximize dose and see if we can get him off Cardene IV. If this does not get BP to goal, consider Nifedipine next for BP control and to help prevent cerebral vasospasm in setting of ICH. Mgmt of ICH per primary team. Likely need discussion with family regarding goals of care though he does have some improvement in neuro function overall. Appears to be on spontaneous breathing trial at time of my exam and doing well with it.
[2018-10-10] MEDS: Sodium Chloride 0.9% 1,000 ML IV SCH ×3 (06:33→17:11)
[2018-10-10 07:19] LABS: Actual Bicarbonate (HCO3a) 18.3 mEq/L (22-28); Base Excess (BEa) -3.3 mEq/L (-2.0 to +3.0); Calcium, Ionized 1.07 mmol/L (1.12-1.30); Carboxyhemoglobin (COHb) 0.5 gm% (0.0-3.0); Hemoglobin (Hb) 8.5 g/dL (14.0-18.0); O2 Tension (PaO2) 72.8 mmHg (> 80.0); Potassium - ABG Lab 3.45 mmol/L (3.70-5.30); pH, Arterial 7.54 (7.35-7.45)
[2018-10-10 07:20] LABS: ALV-art Gradient 113.475 (0-20); CO2 Tension 22.1 mmHg (35.0-45.0); Puncture Site LRA
[2018-10-10] MEDS ORDERED: HumaLOG 300 UNITS/3 ML VIAL SC PRN (08:45)
[2018-10-10] MEDS ORDERED: Dextrose 5% in Water 1,000 ML IV PRN (08:45)
[2018-10-10] MEDS ORDERED: Dextrose 50% Abboject 50 ML SYRINGE SLOW IVP PRN (08:45)
--- NOTE | 2018-10-10 08:46 | RAD ---
AP CHEST: History: CCU follow up. On Ventilator. Comparison: 10-08-18 FINDINGS: There continues to be hazy interstitial opacity in the medial right lung base, unchanged from prior s tudy. This could represent infiltrate or atelectasis. The lungs otherwise appear clear and unchanged in appearance. IMPRESSION: Stable chest findings. POS: TERRY
[2018-10-10] MEDS: Famotidine 20 MG TAB PO SCH (08:50)
[2018-10-10] MEDS: Carvedilol 25 MG TAB PO SCH ×2 (08:51→17:11)
--- NOTE | 2018-10-10 09:57 | PRG ---
DATE OF SERVICE: 10/10/2018 SUBJECTIVE: A 63-year-old gentleman remains intubated in the vent with a ventriculostomy drain. OBJECTIVE: VITAL SIGNS: Pulse 94, blood pressure 165/52, saturations 98%, and respiratory rate 20. CHEST: Decreased breath sounds. No wheezing. CARDIAC: Normal S1 and S2. No gallops. ABDOMEN: No masses. LABORATORY DATA: The pO2 is 72, pCO2 is 22, and pH 7.50. White count is 6000, H and H 9 and 29, and platelet count is normal. Creatinine is 1.3. IMPRESSION: Hypertensive bleed, respiratory failure, and azotemia. PLAN: Continue ongoing drainage. Start nutrition, wean when stable from Neurosurgical standpoint. One-half hour critical time. Job ID: [id number]
--- NOTE | 2018-10-10 13:26 | PRG ---
DATE OF SERVICE: 10/10/2018 SUBJECTIVE: Mr. Felton this morning continues to be slowly improving neurologically. He localizes pain and seems to be following commands. His eyes were adhered, shut by some crusting. This was cleaned and now with deep pain stimuli. He does open his eyes as well. He maintains a cough and gag that is very much overbreathing the vent. This may ultimately lead to extubation maybe in the next 24 to 48 hours if he continues to improve. I have not repeated any CT scan today that he has made these neurologic improvements. His EVD is still in place and is draining anywhere from 4 to 10 mL an hour. For now under surgery, we will continue with this plan of care. Job ID: [id number]
--- NOTE | 2018-10-10 22:03 | PRG ---
DATE OF SERVICE: 10/10/2018 Mr. Felton continues to recover in the ICU from intracerebral hemorrhage with intraventricular extension. He remains intubated. He has a ventriculostomy in place. I inspected that today and at the time of my inspection, it was clogged. I flushed and removed a large clot and thereafter it was flowing normally. He has had a slow, but certainly improvement in his neurologic exam. He does open his eyes to stimulation. He episodically will follow commands. From a neurosurgical perspective, we will continue with drainage of the ventriculostomy tube. He can be weaned toward extubation as soon as our Pulmonary Critical Care colleagues feel he is safe to extubate. I have made an attempt to contact his daughter, December, on a couple of occasions and been unsuccessful to do so. I will reach out again to her later today and tomorrow. Job ID: [id number]
[2018-10-11] MEDS: CEFAZOLIN 2 GM/50 ML-DEXTROSE 2 GM in Premix Bag 1 BAG IVPB SCH ×3 (02:07→17:07)
[2018-10-11 05:10] LABS: #Eosinphils 0.1 thou/uL (0.0-0.7); #Lymphocytes 0.5 thou/uL (1.20-3.40); #Monocytes 0.6 thou/uL (0.11-0.59); #Neutrophils 4.7 thou/uL (1.40-6.50); %Basophils 0.1 % (0.0-1.0); %Lymphocytes 8.1 % (21.0-51.0); %Monocytes 9.6 % (0.0-10.0); %Neutrophils 81.2 % (42.0-75.0); Hemoglobin 9.4 g/dL (14.0-18.0); Mean Corpuscular HGB CONC 33.2 g/dL (32.0-36.0); Mean Corpuscular Volume 90.4 fL (78.0-98.0); Platelet Count 127 thou/uL (130-400); RBC Distribution Width 16.7 % (11.5-14.5); Red Blood Cell (RBC) Count 3.13 mill/uL (4.70-6.10); White Blood Cell (WBC) Count 5.8 thou/uL (4.8-10.8)
[2018-10-11 05:34] LABS: Anion Gap 15 mmol/L (10-20); BUN (Urea Nitrogen) 20 mg/dL (8.4-25.7); Calc. Creatinine Clearance 41 mL/min (70-130); Carbon Dioxide 18 mmol/L (23-31); Chloride 109 mmol/L (98-107); Estimated GFR-MDRD 54; Glucose 86 mg/dL (80-115); Potassium 3.2 mmol/L (3.5-5.1); Sodium 139 mmol/L (136-145)
--- NOTE | 2018-10-11 05:46 | PDOC.FM ---
- Subjective Subjective: Overnight patient showing very mild neurological improvement. He is able to follows command to hand mica plate layer on R side, nursing reports that at times he is able to nod yes or no. Additionally, he has had posturing on the L at times. He is unable to open his eyes. Still on cardene drip. On CPAP and breathing spontaneously on vent. - Objective Vital Signs & Weight: Vital Signs (12 hours) Temp Pulse Resp BP Pulse Ox 10/11/18 04:00 98.5 F 17 10/11/18 02:44 84 149/77 H 10/11/18 02:00 18 10/11/18 00:22 86 20 94 L 10/11/18 00:00 98.2 F 22 H 10/10/18 22:27 72 142/70 H 10/10/18 22:00 13 10/10/18 20:00 98.6 F 20 100 10/10/18 18:39 73 142/71 H 10/10/18 18:37 74 17 100 10/10/18 18:00 15 Weight Admit Weight 53.524 kg Weight 51.4 kg Most Recent Monitor Data Heart Rate from ECG 77 NIBP 153/70 NIBP BP-Mean 97 Respiration from ECG 15 SpO2 100 I&O: 10/09/18 10/10/18 10/11/18 06:59 06:59 06:59 Intake Total 1033 2276 100 Output Total 1142 1712 1540 Balance -109 334 -1840 Result Diagrams: 10/11/18 04:28 10/11/18 04:28 Phys Exam - Physical Examination Constitutional: NAD HEENT: PERRLA, moist MMs Respiratory: no wheezing, clear to auscultation bilateral Cardiovascular: RRR, no significant murmur Gastrointestinal: soft, non-tender, no distention, positive bowel sounds Musculoskeletal: pulses present associate medical director on R, overnight was able to nod at times, hyperreflexic at lower ext. unable to open eyes, PERRLA Skin: cap refill <2 seconds Dx/Plan (1) Basal ganglia hemorrhage Code(s): I61.0 - NONTRAUMATIC INTCRBL HEMORRHAGE IN HEMISPHERE, SUBCORTICAL Status: Acute (2) Hyponatremia Code(s): E87.1 - HYPO-OSMOLALITY AND HYPONATREMIA Status: Acute (3) Chronic alcoholism Code(s): F10.20 - ALCOHOL DEPENDENCE, UNCOMPLICATED Status: Chronic (4) HTN (hypertension) Code(s): I10 - ESSENTIAL (PRIMARY) HYPERTENSION Status: Chronic (5) Tobacco dependence Code(s): F17.200 - NICOTINE DEPENDENCE, UNSPECIFIED, UNCOMPLICATED Status: Chronic - Plan Plan: # non-traumatic intracerebral hemorrhage likely 2/2 severe uncontrolled HTN - non-compliant with meds per family - external ventricular drain placed 10/08, flushed 10/10 draining - repeat CT 10/10 shows increased bleeding - mgmt per neurosurgery # HTN - goal of <160 sbp per neurosurgery - increased carvedilol to 25mg bid on 10/10 - will add nifedipine 60mg 10/11 - on cardene drip at 2.5 this AM # Alcohol abuse - currently non responsive and not on sedation - will monitor for signs of withdrawal - BAL was undetectable at times of admission # elevated ALT -likely 2/2 alcohol abuse -consider checking HIV, hep C if becomes clinically relevant # Hypokalemia - replete PRN # Hyponatremia - monitor Code Status: FULL Diet: NPO PCP: unknown DVT ppx: anticoagulant contraindicated, will apply SCDs Addendum - Attending - Attending Attestation Date/Time: 10/11/18 1011 I personally evaluated the patient and discussed the management with Dr. Parker. I agree with the History, Examination, Assessment and Plan documented above with any addition or exceptions noted below. Patient somewhat improved today from a neurological standpoint. Continue ICH mgmt per primary team. We are working on getting BP better controlled and have added PO Procardia XL for BP control and it appears at current time we may be able to finally wean the Cardene. Will also start Librium scheduled to help offset the potential for alcoholic withdrawals or DTs as we are masking the symptoms of those with the other interventions we are providing.
[2018-10-11] MEDS: Sodium Chloride 0.9% 1,000 ML IV SCH ×2 (05:49→23:12)
--- NOTE | 2018-10-11 08:02 | PRG ---
DATE OF SERVICE: 10/11/2018 Mr. Felton continues to recover in the ICU from an intracerebral hemorrhage with intraventricular extension. Over the last 48 hours, he has made slow improvement in his exam to the point where now he does follow commands and open his eyes to voice. He has ventriculostomy which continues to drain bloody CSF. I was able to reach his daughter this morning and update her with respect to his diagnosis, his imaging, and the plan moving forward. The plan for the foreseeable future will be ongoing management of the EVD for the purposes of draining blood and spinal fluid as needed. We will continue to monitor his blood pressure and be vigilant with respect to other potential complications which can arise such as pneumonia and DVT. I did let her know that he is likely to have a protracted stay within the hospital and even if he is able to leave the hospital, he will need either rehab or [facility] facility. From a respiratory perspective, I will defer to our Pulmonary colleagues and they can move towards extubation if and when possible. Job ID: [id number]
[2018-10-11] MEDS: Famotidine 20 MG TAB PO SCH (08:35)
[2018-10-11] MEDS: Carvedilol 25 MG TAB PO SCH ×2 (08:35→12:54)
[2018-10-11] MEDS: NIFEdipine XL 60 MG TAB PO SCH (08:35)
--- NOTE | 2018-10-11 09:04 | RAD ---
SINGLE VIEW OF THE CHEST: Comparison: 10-10-18 History: Ventilated patient with respiratory failure. FINDINGS: Single view of the chest shows a normal sized cardiomediastinal silhouette with atherosclerotic calci fications in the aorta. Endotracheal tube and NG tube are unchanged in position. There is no evidence of consolidation, mass, or pleural effusion. IMPRESSION: No evidence of acute cardiopulmonary disease. POS: TPC
--- NOTE | 2018-10-11 09:15 | PDOC.EVN ---
Event Note - Event Note Event Note: will start patient on low dose of librium to cover for alcohol withdrawal No signs of withdrawal at this time but still intubated and on diltiazem will start 2/2 history of heavy drinking
[2018-10-11] MEDS ORDERED: DC Sedation Protocol FS ONE (09:29)
--- NOTE | 2018-10-11 10:44 | PRG ---
DATE OF SERVICE: 10/11/2018 SUBJECTIVE: This morning, he is agitated, on CPAP. Tidal volume is over 400 mL. OBJECTIVE: VITAL SIGNS: Pulse 71, blood pressure 96/69, saturations 98%, and respiratory rate 12. EXTREMITIES: Moving his left side. He is moving his right side. CHEST: Decreased breath sounds. No wheezing. CARDIAC: Normal S1 and S2. No gallops. ABDOMEN: No masses. IMPRESSION: 1. Status post intracerebral hemorrhage. 2. History of alcohol abuse. PLAN: He will be extubated today, otherwise, continue with supportive care and PT. Continue observation in the ICU. One-half hour of critical time. Job ID: [id number]
[2018-10-11] MEDS: Lorazepam 2 MG/ML VIAL SLOW IVP SCH ×2 (16:56→23:13)
[2018-10-12 05:49] LABS: #Eosinphils 0.2 thou/uL (0.0-0.7); #Lymphocytes 0.8 thou/uL (1.20-3.40); #Monocytes 0.8 thou/uL (0.11-0.59); #Neutrophils 4.8 thou/uL (1.40-6.50); %Basophils 0.2 % (0.0-1.0); %Eosinophils 3.3 % (0.0-10.0); %Monocytes 12.1 % (0.0-10.0); %Neutrophils 72.3 % (42.0-75.0); Hemoglobin 9.9 g/dL (14.0-18.0); Mean Corpuscular HGB CONC 32.8 g/dL (32.0-36.0); Mean Corpuscular Hemoglobin 29.8 pg (27.0-31.0); Mean Corpuscular Volume 90.9 fL (78.0-98.0); Mean Platelet Volume 10.2 fL (7.4-10.4); Platelet Count 147 thou/uL (130-400); RBC Distribution Width 16.7 % (11.5-14.5); Red Blood Cell (RBC) Count 3.31 mill/uL (4.70-6.10); White Blood Cell (WBC) Count 6.6 thou/uL (4.8-10.8)
[2018-10-12 06:14] LABS: Anion Gap 15 mmol/L (10-20); BUN (Urea Nitrogen) 25 mg/dL (8.4-25.7); Calc. Creatinine Clearance 42 mL/min (70-130); Calcium 8.3 mg/dL (7.8-10.44); Carbon Dioxide 13 mmol/L (23-31); Chloride 113 mmol/L (98-107); Estimated GFR-MDRD 55; Glucose 77 mg/dL (80-115); Sodium 137 mmol/L (136-145)
--- NOTE | 2018-10-12 06:28 | PDOC.FM ---
- Subjective Subjective: No complaints. Grumbling/making sounds but unable to formulate words other than no. Follows commands with right hand. Cannot open eyes to commands. - Objective MAR Reviewed: Yes Vital Signs & Weight: Vital Signs (12 hours) Temp Pulse Resp Pulse Ox 10/12/18 04:00 98.5 F 10/12/18 00:52 73 20 100 10/12/18 00:00 97.6 F 10/11/18 21:00 99 10/11/18 20:00 98.3 F Weight Admit Weight 53.524 kg Weight 52.163 kg Most Recent Monitor Data Heart Rate from ECG 75 NIBP 146/82 NIBP BP-Mean 103 Respiration from ECG 14 SpO2 100 I&O: 10/10/18 10/11/18 10/12/18 06:59 06:59 06:59 Intake Total 2276 1313 1186 Output Total 1712 1577 760 Balance 564 -264 426 Result Diagrams: 10/12/18 05:20 10/12/18 05:20 Phys Exam - Physical Examination Constitutional: NAD HEENT: PERRLA, moist MMs Respiratory: no wheezing, no rales, clear to auscultation bilateral Cardiovascular: RRR, no significant murmur Gastrointestinal: soft, non-tender, no distention Musculoskeletal: no edema, pulses present PERRLA, unable to move left arm, follows commands with right arm unable to formulate words other than no; cannot open eyes to commands Skin: no rash, normal turgor, cap refill <2 seconds Dx/Plan (1) Basal ganglia hemorrhage Code(s): I61.0 - NONTRAUMATIC INTCRBL HEMORRHAGE IN HEMISPHERE, SUBCORTICAL Status: Acute (2) Chronic alcoholism Code(s): F10.20 - ALCOHOL DEPENDENCE, UNCOMPLICATED Status: Chronic (3) HTN (hypertension) Code(s): I10 - ESSENTIAL (PRIMARY) HYPERTENSION Status: Chronic (4) Macrocytic anemia Code(s): D53.9 - NUTRITIONAL ANEMIA, UNSPECIFIED Status: Chronic (5) Tobacco dependence Code(s): F17.200 - NICOTINE DEPENDENCE, UNSPECIFIED, UNCOMPLICATED Status: Chronic - Plan Plan: # non-traumatic intracerebral hemorrhage likely 2/2 severe uncontrolled HTN - non-compliant with meds per family - external ventricular drain placed 10/08 - repeat CT 10/10 shows increased bleeding - mgmt per neurosurgery # HTN - goal of <160 sbp per neurosurgery - carvedilol to 25mg bid on 10/10 and added nifedipine 60mg 10/11 - Pt has nicardipine Iv prn ordered for SBP>160 # Alcohol abuse - continue to monitor for s/s of withdrawal # elevated ALT and Alk phosph -likely 2/2 alcohol abuse -will add HIV, Hep c, RVR if liver enzymes continue to increase # Hypokalemia - resolved # Hyponatremia - resolved # Hyperchloremia - monitor Code Status: FULL Diet: NPO PCP: unknown DVT ppx: anticoagulant contraindicated, will apply SCDs Addendum - Attending - Attending Attestation Date/Time: 10/12/18 1018 I personally evaluated the patient and discussed the management with Dr. Ferrell. I agree with the History, Examination, Assessment and Plan documented above with any addition or exceptions noted below. The patient's ventriculostomy continues to drain. He follows commands with his right hand and leg. Has prn meds for hypertension. speech eval is pending. Cutting back on frequency of accuchek.
[2018-10-12] MEDS ORDERED: CEFAZOLIN 2 GM/50 ML-DEXTROSE 2 GM in Premix Bag 1 BAG IVPB SCH (06:45)
[2018-10-12] MEDS: Lorazepam 2 MG/ML VIAL SLOW IVP SCH ×5 (06:46→20:14)
[2018-10-12] MEDS: CEFAZOLIN 2 GM/50 ML-DEXTROSE 2 GM in Premix Bag 1 BAG IVPB SCH ×3 (07:22→22:57)
[2018-10-12 08:18] LABS: ALT (SGPT) Less than 7 U/L (8-55); AST (SGOT) 34 U/L (5-34); Alkaline Phosphatase 123 U/L (40-150)
--- NOTE | 2018-10-12 08:40 | RAD ---
PORTABLE SEMIURPIGHT FRONTAL CHEST RADIOGRAPH: DATE: 10/12/2018. COMPARISON: 10/11/2018. History Ventilated patient. FINDINGS: Endotracheal tube and nasogastric tube have been removed. Mild interstitial opacity noted in the per ihilar regions in both lung bases, chronicity uncertain. There is no pneumothorax, pleural fluid, lo bar consolidation or alveolar edema. IMPRESSION: Nonspecific coarse increased linear interstitial density in the perihilar regions in both lung bases. POS: [facility]
--- NOTE | 2018-10-12 08:42 | PRG ---
DATE OF SERVICE: 10/12/2018 I saw Mr. Felton in his ICU room this morning. Yesterday, he was given a dose of Ativan and instead of attempting to say a few words, he is more somnolent. That seems to be wearing off this morning. I saw Mr. Felton in his bed in his ICU room and his vitals have been stable. The one fever was recorded two days ago, and he has been afebrile since. His blood pressures have been in the 130s to 140s. On examination, Mr. Felton is arousable to loud voice or stimulation. He attempts to say some sounds. He is not making attempts to open his eyes for me, but he does follow commands. He squeezes right side and he wiggles his right toes. There is some wiggling of the left toes. I cannot get the left arm to move. When I opened his eyes, his pupils are reactive. Mr. Felton has a serum sodium of 137, which is good. In summary, Mr. Felton is neurologically stable. His external ventricular drain continues to put out fluid, but it does not transduce pressure very well. We will continue to drain the EVD over the weekend. We will monitor his sodium. Starting next week, Dr. Majano's team will begin the weaning process of the ventriculostomy. Job ID: [id number]
[2018-10-12] MEDS: NIFEdipine XL 60 MG TAB PO SCH (09:20)
[2018-10-12] MEDS: Famotidine 20 MG TAB PO SCH (09:20)
[2018-10-12] MEDS: Carvedilol 25 MG TAB PO SCH ×2 (09:20→16:58)
--- NOTE | 2018-10-12 10:28 | PRG ---
DATE OF SERVICE: 10/12/2018 SUBJECTIVE: This morning, the patient is in the ICU. He remains encephalopathic with left hemiparesis. OBJECTIVE: VITAL SIGNS: Pulse 78, blood pressure 148/72, and sats are 99%. CHEST: Extensive rhonchi and crackles. CARDIAC: Normal S1, S2. No gallops. ABDOMEN: No masses. LABORATORY DATA: Creatinine 1.3. White count 6000. DIAGNOSTIC DATA: Chest x-ray shows nonspecific bilateral infiltrates. IMPRESSION: 1. Intracerebral hemorrhage, status post ventriculostomy. 2. Retained secretions, chronic obstructive pulmonary disease. 3. Hypertension. PLAN: Minimize sedation. Start neb treatments, PT. He is going to need a PEG. It is very unlikely he is going to swallow at this time. Job ID: [id number]
[2018-10-12] MEDS: Sodium Chloride 0.9% 1,000 ML IV SCH (11:51)
--- NOTE | 2018-10-12 23:30 | EKG ---
Test Reason : Blood Pressure : / mmHG Vent. Rate : 082 BPM Atrial Rate : 082 BPM P-R Int : 160 ms QRS Dur : 094 ms QT Int : 420 ms P-R-T Axes : 054 -53 103 degrees QTc Int : 490 ms Normal sinus rhythm Left anterior fascicular block Nonspecific ST and T wave abnormality Prolonged QT Abnormal ECG Confirmed by ALYSIA GARCES DO ([id number]), newspaper or periodical editor MENG MONSIVAIS ([id number]) on 10/12/2018 11:29:30 PM Referred By: Confirmed By:ALYSIA GARCES DO
[2018-10-13] MEDS: Lorazepam 2 MG/ML VIAL SLOW IVP SCH ×6 (03:07→21:23)
[2018-10-13] MEDS: Sodium Chloride 0.9% 1,000 ML IV SCH ×3 (03:07→17:31)
[2018-10-13 04:31] LABS: #Eosinphils 0.1 thou/uL (0.0-0.7); #Lymphocytes 0.6 thou/uL (1.20-3.40); #Monocytes 0.8 thou/uL (0.11-0.59); #Neutrophils 4.3 thou/uL (1.40-6.50); %Basophils 0.2 % (0.0-1.0); %Lymphocytes 10.6 % (21.0-51.0); %Neutrophils 75.2 % (42.0-75.0); Hemoglobin 10.7 g/dL (14.0-18.0); Mean Corpuscular HGB CONC 31.7 g/dL (32.0-36.0); Mean Corpuscular Hemoglobin 29.8 pg (27.0-31.0); Platelet Count 212 thou/uL (130-400); RBC Distribution Width 16.9 % (11.5-14.5); White Blood Cell (WBC) Count 5.8 thou/uL (4.8-10.8)
[2018-10-13 04:47] LABS: Anion Gap 18 mmol/L (10-20); BUN (Urea Nitrogen) 26 mg/dL (8.4-25.7); Calc. Creatinine Clearance 36 mL/min (70-130); Calcium 8.3 mg/dL (7.8-10.44); Carbon Dioxide 11 mmol/L (23-31); Chloride 118 mmol/L (98-107); Estimated GFR-MDRD 46; Glucose 77 mg/dL (80-115); Potassium 3.8 mmol/L (3.5-5.1); Sodium 143 mmol/L (136-145)
[2018-10-13] MEDS: CEFAZOLIN 2 GM/50 ML-DEXTROSE 2 GM in Premix Bag 1 BAG IVPB SCH ×3 (06:24→21:22)
--- NOTE | 2018-10-13 06:54 | PDOC.FM ---
- Subjective Subjective: Not safe for swallowing solids or liquids. Can say single words per speech, and speech more intelligible today. Knows his name and where he his. - Objective MAR Reviewed: Yes Vital Signs & Weight: Vital Signs (12 hours) Temp Pulse Resp Pulse Ox 10/13/18 04:00 98.6 F 10/13/18 00:37 94 24 H 99 10/13/18 00:00 98.3 F 10/12/18 20:00 98 10/12/18 19:00 99.0 F Weight Admit Weight 53.524 kg Weight 50.984 kg Most Recent Monitor Data Heart Rate from ECG 96 NIBP 148/74 NIBP BP-Mean 98 Respiration from ECG 27 SpO2 99 I&O: 10/11/18 10/12/18 10/13/18 06:59 06:59 06:59 Intake Total 1313 1186 2564 Output Total 3995 558 6380 Balance -970 046 1856 Result Diagrams: 10/13/18 04:20 10/13/18 04:20 Phys Exam - Physical Examination Constitutional: NAD HEENT: PERRLA, moist MMs Respiratory: no wheezing, no rales, clear to auscultation bilateral Cardiovascular: RRR, no significant murmur Gastrointestinal: soft, non-tender, no distention Musculoskeletal: no edema, pulses present able to move right arm on commands and wiggle right toes unable to move left foot or arm; can minimally open eyes today on command Skin: no rash, normal turgor Dx/Plan (1) Basal ganglia hemorrhage Code(s): I61.0 - NONTRAUMATIC INTCRBL HEMORRHAGE IN HEMISPHERE, SUBCORTICAL Status: Acute (2) Chronic alcoholism Code(s): F10.20 - ALCOHOL DEPENDENCE, UNCOMPLICATED Status: Chronic (3) HTN (hypertension) Code(s): I10 - ESSENTIAL (PRIMARY) HYPERTENSION Status: Chronic (4) Macrocytic anemia Code(s): D53.9 - NUTRITIONAL ANEMIA, UNSPECIFIED Status: Chronic (5) Tobacco dependence Code(s): F17.200 - NICOTINE DEPENDENCE, UNSPECIFIED, UNCOMPLICATED Status: Chronic - Plan Plan: 63 yo m admitted for a nontraumatic intracerebral hemorrhage 2/2 severe uncontrolled HTN: # non-traumatic intracerebral hemorrhage likely 2/2 severe uncontrolled HTN - non-compliant with meds per family - external ventricular drain placed 10/08 - repeat CT 10/10 shows increased bleeding - mgmt per neurosurgery who plan to wean drain this week - bp's <160 overnight # HTN - goal of <160 sbp per neurosurgery - pt still on cardene drip as unable to tolerate PO - plan to wean today, placed NG tube to administer PO meds, will order trickle feeds today - carvedilol 25mg bid and nifedipine 60mg started - Pt has nicardipine Iv prn ordered for SBP>160 # Alcohol abuse - continue to monitor for s/s of withdrawal # elevated ALT and Alk phosph - resolved # Hypokalemia - resolved # Hyponatremia - resolved # Hyperchloremia - monitor Code Status: FULL Diet: NPO, NG tube placed, will order trickle feeds PCP: unknown DVT ppx: anticoagulant contraindicated, will apply SCDs Addendum - Attending - Attending Attestation Date/Time: 10/13/18 6822 I personally evaluated the patient and discussed the management with Dr. Ferrell. I agree with the History, Examination, Assessment and Plan documented above with any addition or exceptions noted below. NG tube ordered and placed this morning. Will start feeds. Consulting dietary. Will also add free water throguh NG. Wean cardene drip as we are able to give meds through NG tube. Will consult for peg tube placement in AM.
[2018-10-13] MEDS: NIFEdipine XL 60 MG TAB PO SCH (07:48)
[2018-10-13] MEDS: Carvedilol 25 MG TAB PO SCH ×2 (07:48→16:25)
[2018-10-13] MEDS: Famotidine 20 MG TAB PO SCH (07:48)
[2018-10-13] MEDS ORDERED: Acetylcysteine 20% 200 MG/ML 30 ML VIAL ONE (09:00)
--- NOTE | 2018-10-13 09:52 | PRG ---
DATE OF SERVICE: 10/13/2018 NEUROSURGERY PROGRESS NOTE I saw Yeny Felton in his ICU room this morning. No events reported by nursing overnight. His vital signs have been stable and he has been afebrile. ICU blood pressures in the 140s to 150s. The drain continues to drain fluid, although his CSF collection bag is almost full and that needs to be changed today. On examination, Mr. Felton is not opening his eyes for me, but when I talked to him this morning, he begins to attempt to say words. This sounds are more comprehensible than they were yesterday. He clearly follows commands on the right side. The left leg is withdrawn and I cannot get the left arm to move, but that is stable from yesterday. Today's sodium is 143. We will continue the drain at 5 cm of water. Mr. Felton' examination is stable. Dr. Majano plans to slowly wean the drain off and remove it this coming week. Job ID: [id number]
--- NOTE | 2018-10-13 10:31 | PRG ---
DATE OF SERVICE: SUBJECTIVE: Status post CVA, left-sided hemipareses. OBJECTIVE: VITAL SIGNS: Blood pressure 180/70, pulse 85, respiratory rate 18. EXTREMITIES: He is undergoing DTs. CHEST: Decreased breath sounds. No wheezing. CARDIAC: Normal S1 and S2. No gallops or mass. DIAGNOSTIC DATA: X-ray yesterday shows bilateral infiltrates, basilar segments. LABORATORY DATA: Creatinine 1.53. White count 5000, H and H 10 and 30. IMPRESSION: 1. Status post CVA, intracerebral hemorrhage. 2. Alcohol abuse. 3. Respiratory failure. 4. Retained secretions. 5. Hypertension. PLAN: He needs a PEG for long-term care and placement. Otherwise, control blood pressure, supportive care, nutrition, and PT. Job ID: [id number]
[2018-10-13] MEDS: cloNIDine 0.1 MG TAB PO SCH (21:21)
[2018-10-14] MEDS: Lorazepam 2 MG/ML VIAL SLOW IVP SCH ×3 (01:59→09:24)
[2018-10-14 05:11] LABS: #Eosinphils 0.1 thou/uL (0.0-0.7); #Lymphocytes 0.9 thou/uL (1.20-3.40); #Monocytes 0.6 thou/uL (0.11-0.59); #Neutrophils 3.6 thou/uL (1.40-6.50); %Basophils 0.2 % (0.0-1.0); %Eosinophils 1.6 % (0.0-10.0); %Lymphocytes 16.4 % (21.0-51.0); %Monocytes 11.8 % (0.0-10.0); Hemoglobin 10.1 g/dL (14.0-18.0); Mean Corpuscular HGB CONC 32.3 g/dL (32.0-36.0); Mean Corpuscular Hemoglobin 29.5 pg (27.0-31.0); Mean Corpuscular Volume 91.4 fL (78.0-98.0); Mean Platelet Volume 9.4 fL (7.4-10.4); Platelet Count 168 thou/uL (130-400); RBC Distribution Width 16.3 % (11.5-14.5); Red Blood Cell (RBC) Count 3.43 mill/uL (4.70-6.10); White Blood Cell (WBC) Count 5.2 thou/uL (4.8-10.8)
[2018-10-14 05:31] LABS: Anion Gap 17 mmol/L (10-20); BUN (Urea Nitrogen) 28 mg/dL (8.4-25.7); Calc. Creatinine Clearance 35 mL/min (70-130); Calcium 8.1 mg/dL (7.8-10.44); Carbon Dioxide 12 mmol/L (23-31); Chloride 121 mmol/L (98-107); Estimated GFR-MDRD 46; Glucose 72 mg/dL (80-115); Sodium 147 mmol/L (136-145)
[2018-10-14] MEDS: Sodium Chloride 0.9% 1,000 ML IV SCH ×2 (05:50→06:35)
[2018-10-14] MEDS: CEFAZOLIN 2 GM/50 ML-DEXTROSE 2 GM in Premix Bag 1 BAG IVPB SCH ×3 (05:51→21:42)
--- NOTE | 2018-10-14 06:13 | PDOC.FM ---
- Subjective Subjective: Spoke to patient's nurse this AM. No significant overnight events. Patient not clearing secretions well. He has to be suctioned often. He is not following commands, although he makes gestures as if he is trying to respond at times. He has no use of his left arm or leg at this time. He does make movements with his right arm, and raised his right arm up to day. Patient's POA is his sister December. As patient will need PEG tube, will attempt to call sister and discuss today. Patient has not received tube feeds as there was no syrup mixer on over the weekend. - Objective MAR Reviewed: Yes Vital Signs & Weight: Vital Signs (12 hours) Temp Pulse Resp BP Pulse Ox 10/14/18 04:00 98.8 F 10/14/18 00:22 84 30 H 96 10/14/18 00:00 98.6 F 10/13/18 21:21 160/74 H 10/13/18 20:00 98.6 F 98 10/13/18 18:46 82 28 H 97 Weight Admit Weight 53.524 kg Weight 50.984 kg Most Recent Monitor Data Heart Rate from ECG 82 NIBP 162/83 NIBP BP-Mean 109 Respiration from ECG 27 SpO2 97 I&O: 10/12/18 10/13/18 10/14/18 06:59 06:59 06:59 Intake Total 1186 2564 1537 Output Total 785 1054 1339 Balance 401 1510 198 Result Diagrams: 10/14/18 03:56 10/14/18 03:56 EKG Reviewed by me: Yes Radiology Reviewed by me: Yes Phys Exam - Physical Examination Not responsive to commands, moans HEENT: moist MMs rhonchorous throughout, increased work of breathing Cardiovascular: RRR Gastrointestinal: soft, no distention Musculoskeletal: no edema, pulses present Patient not using left side of body Deviation from normal: moans in response to questions Dx/Plan (1) Basal ganglia hemorrhage Code(s): I61.0 - NONTRAUMATIC INTCRBL HEMORRHAGE IN HEMISPHERE, SUBCORTICAL Status: Acute (2) Chronic alcoholism Code(s): F10.20 - ALCOHOL DEPENDENCE, UNCOMPLICATED Status: Chronic (3) HTN (hypertension) Code(s): I10 - ESSENTIAL (PRIMARY) HYPERTENSION Status: Chronic (4) Macrocytic anemia Code(s): D53.9 - NUTRITIONAL ANEMIA, UNSPECIFIED Status: Chronic (5) Tobacco dependence Code(s): F17.200 - NICOTINE DEPENDENCE, UNSPECIFIED, UNCOMPLICATED Status: Chronic - Plan Plan: 63 yo m admitted for a nontraumatic intracerebral hemorrhage 2/2 severe uncontrolled HTN: Non-traumatic intracerebral hemorrhage likely 2/2 severe uncontrolled HTN - non-compliant with meds per family - external ventricular drain placed 10/08, still in place - repeat CT 10/10 shows increased bleeding - mgmt per neurosurgery who plan to wean drain this week - bp's >160 overnight and this AM; patient was transitioned to tube feeds yesterday. Trying to wean of nicardipine drip, but BP's not at goal. Patient has not been getting nifedipine for the last two days because he was NPO and the medication cannot be crushed. Will switch to amlodipine for the time being and adjust medication as necessary. Patient has been getting carvedilol PO. HTN - goal of <160 sbp per neurosurgery - pt getting nicardipine PRN for SBP >160 overnight - NG tube placed to give PO meds and trickle feeds; Nifedipine not able to be given by tube per nursing notes. Will transition to amlodipine at this time. - carvedilol 25mg bid and nifedipine 60mg started; patient has not been receiving nifedipine for the last two days as mentioned above. - Pt has nicardipine Iv prn ordered for SBP>160; patient has required nicardipine Alcohol abuse - continue to monitor for s/s of withdrawal Elevated ALT and Alk phosph - resolved Hypokalemia - resolved Hyponatremia - resolved - patient now appears hypernatremic, likely 2/2 NS Hyperchloremia - monitor - likely 2/2 NS, will transition to LR JAVIER - Appears worsened - Will transition to LR from NS as patient is hyperchloremic and acidotic Hyperchloremic metabolic acidosis - Likely 2/2 NS; will d/c NS and transition to LR Code Status: FULL Diet: NPO, NG tube placed, trickle feeds ordered yesterday; will discuss placement of PEG tube today PCP: unknown DVT ppx: anticoagulant contraindicated, will apply SCDs Dispo: Stable. Will discuss PEG tube today. Management per neurosurgery. Will continue to monitor BP and adjust medication as necessary.
[2018-10-14 06:17] VITALS: BMI 19.2
[2018-10-14] MEDS: Lactated Ringer's 1,000 ML IV SCH ×2 (06:34→20:07)
[2018-10-14] MEDS ORDERED: Potassium Chloride 20 MEQ TAB PO SCH (07:30)
[2018-10-14] MEDS ORDERED: Potassium Chloride 40 MEQ in Premix Bag 1 BAG IVPB SCH (07:30)
[2018-10-14] MEDS ORDERED: Midazolam HCl 2 mg/2 ml Vial ONE (08:26)
[2018-10-14] MEDS ORDERED: Propofol 1,000 MG/100 ML VIAL IV ONE (08:34)
[2018-10-14] MEDS ORDERED: Propofol BOLUS 1,000 MG/100 ML VIAL IV PRN (08:43)
[2018-10-14] MEDS ORDERED: Propofol 1,000 MG/100 ML VIAL IV PRN (08:43)
--- NOTE | 2018-10-14 08:49 | PDOC.EVN ---
Event Note - Event Note Event Note: Gloria bradshaw called at appx 8:20 for respiratory distress/failure. Patient unable to protect airway and control secretions. Patient's O2 sats dropped abruptly into the 40's. Patient with labored breathing and copious secretions. Bloody secretions suctioned prior to intubation. Patient ventilated using bag-mask. Glidescope used to intubate patient. Bloody secretions suctioned prior to insertion of ET tube. Successful on first attempt without sedation. Patient will remain on ventilator with possibility for PEG and Trach. Will discuss with patients POA. Dr. Sher present for intubation. ET tube confirmed to be in proper place by CXR. Lissett Alamo, DO PGY-2 Patient s/p bronchoscopy. Large, thick mucous plugs blocking bronchus.
[2018-10-14] MEDS ORDERED: Amlodipine 5 MG TAB PO SCH (09:00)
[2018-10-14 09:04] LABS: Base Excess (BEa) -10.5 mEq/L (-2.0 to +3.0); CO2 Tension 32.1 mmHg (35.0-45.0); Calcium, Ionized 1.18 mmol/L (1.12-1.30); Carboxyhemoglobin (COHb) 0.6 gm% (0.0-3.0); Hemoglobin (Hb) 10.4 g/dL (14.0-18.0); Potassium - ABG Lab 3.24 mmol/L (3.70-5.30); pH, Arterial 7.29 (7.35-7.45)
[2018-10-14 09:05] LABS: O2 Tension (PaO2) 40.2 mmHg (> 80.0)
[2018-10-14 09:06] LABS: ALV-art Gradient 204.875 (0-20); Puncture Site LR
[2018-10-14] MEDS: Carvedilol 25 MG TAB PO SCH ×2 (09:24→16:27)
[2018-10-14] MEDS: Famotidine 20 MG TAB PO SCH (09:25)
[2018-10-14] MEDS: Amlodipine 10 MG TAB PO SCH (09:25)
[2018-10-14] MEDS: cloNIDine 0.1 MG TAB PO SCH ×2 (09:25→23:23)
--- NOTE | 2018-10-14 09:28 | PRG ---
DATE OF SERVICE: 10/14/2018 SUBJECTIVE: This morning, he was having marked respiratory distress. Sats 80% endo tracheal tube. was placed back on vent OBJECTIVE: VITAL SIGNS: Pulse is 85, blood pressure is 130\74__, saturations are 99%, respiratory rate is 18. CHEST: Revealed decreased breath sounds. Bilateral rhonchi. CARDIAC: Normal S1 and S2. No gallops. ABDOMEN: Soft. LABORATORY DATA: White count 5000, H and H 10 and 31, and platelet count is normal. Lytes are normal. Creatinine 1.52. Chest x-ray post-intubation shows minimal bibasilar atelectatic changes. IMPRESSION: 1. Respiratory failure. 2. Intracerebral hemorrhage, status post ventriculostomy. 3. Alcohol abuse. PLAN: Continue vent support. He is probably going to need a trach and PEG. Neurosurgery is following the patient. One-half hour of critical time, exclusive of the intubation. Job ID: [id number] MTDD
--- NOTE | 2018-10-14 09:39 | RAD ---
CHEST 1 VIEW: HISTORY: Intubated. COMPARISON: 10/12/2018. FINDINGS: Cardiac silhouette is magnified by projection. Pulmonary vasculature remains slightly engorged with mild bilateral perihilar and bibasilar infiltrates. The tip of the endotracheal catheter overlies the thoracic inlet. Nasogastric tube descends to the a bdomen. Tip not visualized. No evidence of pneumothorax. Calcification over the aorta. IMPRESSION: 1. Endotracheal catheter is in good radiographic position. 2. Mild pulmonary vascular congestion appears stable. 3. Atherosclerosis. POS: [facility]
[2018-10-14] MEDS ORDERED: Ventilator Sedation Protocol 1 EACH FS SCH (09:45)
[2018-10-14] MEDS ORDERED: fentaNYL Citrate/PF 2,000 MCG in Sodium Chloride 0.9% 60 ML IV SCH (09:59)
[2018-10-14] MEDS ORDERED: Morphine 2 MG/ML SYRINGE SLOW IVP PRN (09:59)
[2018-10-14] MEDS ORDERED: Lorazepam 2 MG/ML VIAL SLOW IVP PRN (09:59)
[2018-10-14] MEDS ORDERED: Fentanyl BOLUS 250 ML IVPB PRN (09:59)
--- NOTE | 2018-10-14 11:04 | OP ---
DATE OF PROCEDURE: 10/14/2018 He is intubated. Unfortunately, post intubation, a chest x-ray shows stable findings, but his oxygenation is extremely poor. His blood gases shows severe hypoxemia. His PO2 was 62, pCO2 of 40%, and pH is 7.29 on 100% FiO2 and 7 of PEEP. It was felt he had a large mucus plug, therefore, the flexible bronchoscope was then passed using an adapter. Distal trachea showed a complete obstruction of the right mainstem bronchus with large mucoid impaction. This was suction lavaged numerous times for 20 minutes, multiple fair lavages and mucomyst was instilled to dislodge the mucus. Finally, we are able to clear the airway, visualized both lungs, right upper, right mid, right lower lobes, left upper and left lower lobes. No further endobronchial obstruction, blood or pus. The washings that were obtained to be sent for Gram stain, C and S. Otherwise, the patient tolerated the procedure well. His oxygen saturations are improved once again to 100%. We will continue vent support, nutrition PT. Job ID: [id number] [facility]ITAL[facility]
--- NOTE | 2018-10-14 12:18 | PRG ---
DATE OF SERVICE: SUBJECTIVE: Mr. Felton this morning unfortunately he has just been reintubated as he has been unable to handle his secretions and no gross respiratory failure. He actually coded in the ICU and was rapidly reintubated. any neurologic examination at this point at bedside. However, the nurse states that this morning before all that happened, he had been attempting to say his name and speak. He has been following commands with his right upper and right lower extremity. The EVD continues to put out close to 10 mL an hour and is slightly blood-tinged. He did have some electrolyte abnormalities, where he was hypernatremic at 147 and hypokalemic at 3.0. This will need to be corrected and we will do further critical care management. From Neurosurgery's perspective, we will continue to leave the drain open and hopefully try clamp trial either this week, assuming that he progresses past and is able to be extubated. He will likely need for tracheostomy and PEG tube placement. Job ID: [id number]
[2018-10-14] MEDS ORDERED: Vecuronium 10 MG VIAL ONE (12:54)
[2018-10-14 15:36] LABS: Anion Gap 13 mmol/L (10-20); BUN (Urea Nitrogen) 33 mg/dL (8.4-25.7); Calc. Creatinine Clearance 31 mL/min (70-130); Calcium 7.9 mg/dL (7.8-10.44); Carbon Dioxide 14 mmol/L (23-31); Chloride 125 mmol/L (98-107); Estimated GFR-MDRD 39; Glucose 63 mg/dL (80-115); Potassium 3.3 mmol/L (3.5-5.1); Sodium 149 mmol/L (136-145)
[2018-10-14] MEDS: Vecuronium 10 MG VIAL IV PRN ×2 (16:27→23:04)
[2018-10-15 05:19] VITALS: TEMP 97.6
--- NOTE | 2018-10-15 05:41 | PDOC.FM ---
- Subjective Subjective: Patient intubated and sedated. Spoke with patient's two daughters yesterday regarding next steps in care which would include trach and PEG. They state that patient would not want this, and that they would like to make patient DNR with comfort measures based on his current state and guarded prognosis. Palliative care consulted to have family discussion. All siblings were available during that time, and they all agreed to make patient DNR and to not proceed with trach and PEG. No significant overnight events. - Objective MAR Reviewed: Yes Vital Signs & Weight: Vital Signs (12 hours) Temp Pulse Resp BP Pulse Ox 10/15/18 04:00 97.6 F 35 H 10/15/18 02:53 97 10/15/18 02:52 74 126/66 10/15/18 02:00 28 H 10/15/18 00:38 74 20 98 10/15/18 00:00 97.7 F 20 10/14/18 23:23 100/58 L 10/14/18 22:15 75 100/58 L 10/14/18 22:00 32 H 10/14/18 20:00 98.6 F 34 H 98 10/14/18 19:07 75 105/62 10/14/18 19:06 75 20 99 10/14/18 18:00 20 Weight Admit Weight 53.524 kg Weight 55.9 kg Most Recent Monitor Data Heart Rate from ECG 76 NIBP 111/66 NIBP BP-Mean 81 Respiration from ECG 35 SpO2 95 I&O: 10/13/18 10/14/18 10/15/18 06:59 06:59 06:59 Intake Total 2564 2919 2600 Output Total 1054 1443 625 Balance 1510 1476 1974 Result Diagrams: 10/15/18 05:25 10/15/18 05:25 EKG Reviewed by me: Yes Radiology Reviewed by me: Yes Phys Exam - Physical Examination Intubated and sedated Rhonchorous throughout; intubated and on ventilator support Cardiovascular: RRR, no significant murmur Gastrointestinal: soft, no distention Musculoskeletal: no edema Unable to assess d/t sedation Skin: no rash Dx/Plan (1) Basal ganglia hemorrhage Code(s): I61.0 - NONTRAUMATIC INTCRBL HEMORRHAGE IN HEMISPHERE, SUBCORTICAL Status: Acute (2) Chronic alcoholism Code(s): F10.20 - ALCOHOL DEPENDENCE, UNCOMPLICATED Status: Chronic (3) HTN (hypertension) Code(s): I10 - ESSENTIAL (PRIMARY) HYPERTENSION Status: Chronic (4) Macrocytic anemia Code(s): D53.9 - NUTRITIONAL ANEMIA, UNSPECIFIED Status: Chronic (5) Tobacco dependence Code(s): F17.200 - NICOTINE DEPENDENCE, UNSPECIFIED, UNCOMPLICATED Status: Chronic - Plan Plan: 63 yo m admitted for a nontraumatic intracerebral hemorrhage 2/2 severe uncontrolled HTN: Non-traumatic intracerebral hemorrhage likely 2/2 severe uncontrolled HTN - non-compliant with meds per family - external ventricular drain placed 10/08, still in place - repeat CT 10/15 shows worsening bleed; pt continues to drain CSF - mgmt per neurosurgery who plan to wean drain this week - BP's have been better controlled sine intubation. Goal still less than 160's systolic. HTN - goal of <160 sbp per neurosurgery - nicardipine drip d/c'd - NG tube placed to give PO meds and trickle feeds; Nifedipine not able to be given by tube per nursing notes. Transitioned to amlodipine yesterday. Alcohol abuse - patient currently intubated and sedated Elevated ALT and Alk phosph - resolved Hypokalemia - replaced yesterday, but still low - added K to fluids Hypernatremia - likely 2/2 fluid replacement with NS - patient with hyperchloremic metabolic acidosis; d/c'd LR today and started D5 1/2 NS with KCl at 75 mL/hr Hyperchloremia - monitor - see plan as above JAVIER - Appears worsened - continue gentle hydration Hyperchloremic metabolic acidosis - Likely 2/2 NS; will d/c LR which was started yesterday and transition to D51/ 2NS Code Status: FULL Diet: NPO, NG tube placed, trickle feeds ordered yesterday; patient's family declines PEG tube PCP: unknown DVT ppx: anticoagulant contraindicated, will apply SCDs Dispo: Stable on ventilatory support. Intubated and sedated. Patient's family has declined proceeding with Trach and PEG and would like to compassionately extubate in 2-3 days with comfort measures at that point.
[2018-10-15] MEDS ORDERED: Dextrose 5%-Lactated Ringers 1,000 ML IV SCH (05:45)
[2018-10-15] MEDS ORDERED: D5 1/2 NS w/40 mEq KCL 1,000 ML IV SCH ×2 (05:45→07:45)
[2018-10-15 06:08] LABS: Anion Gap 15 mmol/L (10-20); BUN (Urea Nitrogen) 37 mg/dL (8.4-25.7); Calc. Creatinine Clearance 30 mL/min (70-130); Carbon Dioxide 13 mmol/L (23-31); Chloride 123 mmol/L (98-107); Estimated GFR-MDRD 34; Glucose 87 mg/dL (80-115); Potassium 3.5 mmol/L (3.5-5.1); Sodium 147 mmol/L (136-145)
[2018-10-15 06:10] LABS: Band 30 % (5-11); Hemoglobin 9.6 g/dL (14.0-18.0); Lymphocytes 9 % (21-51); MDiff Complete? YES; Mean Corpuscular HGB CONC 32.5 g/dL (32.0-36.0); Mean Corpuscular Volume 92.3 fL (78.0-98.0); Mean Platelet Volume 10.2 fL (7.4-10.4); Monocytes 2 % (0-10); Neutrophil 59 % (42-75); Platelet Count 106 thou/uL (130-400); Platelet Morphology Comment Appears Decreased; RBC Distribution Width 16.4 % (11.5-14.5); Red Blood Cell (RBC) Count 3.18 mill/uL (4.70-6.10); White Blood Cell (WBC) Count 3.8 thou/uL (4.8-10.8)
[2018-10-15] MEDS: CEFAZOLIN 2 GM/50 ML-DEXTROSE 2 GM in Premix Bag 1 BAG IVPB SCH (06:23)
[2018-10-15] MEDS ORDERED: Norepinephrine 8 MG/0.9% NS 250 ML ONE (07:20)
[2018-10-15 07:25] LABS: CO2 Tension 30.1 mmHg (35.0-45.0); pH, Arterial 7.32 (7.35-7.45)
[2018-10-15 07:26] LABS: Base Excess (BEa) -10.2 mEq/L (-2.0 to +3.0); Hemoglobin (Hb) 7.9 g/dL (14.0-18.0); O2 Tension (PaO2) 50.9 mmHg (> 80.0)
[2018-10-15 07:27] LABS: ALV-art Gradient 267.975 (0-20); Calcium, Ionized 1.18 mmol/L (1.12-1.30); Carboxyhemoglobin (COHb) 1.2 gm% (0.0-3.0); Peep/CPAP 7.5 cmH2O; Puncture Site LRA
--- NOTE | 2018-10-15 08:07 | CT ---
PRELIMINARY REPORT/[facility]/EMERGENTY AFTER-HOURS PROCEDURE CT Head Without Contrast EXAM DATE/TIME: 10/15/2018 3:32 AM CLINICAL HISTORY: 63 years old, male; Condition or disease; Other: Ich; Prior surgery; Patient HX: F/u ich TECHNIQUE: Axial computed tomography images of the head/brain without contrast. COMPARISON: CT Brain WO Con 10/09/2018 3:08 AM FINDINGS: Brain: Trace subarachnoid hemorrhage in the left parietal lobe. Stable white matter edema. Midline shift: Slightly increased focal leftward midline shift at the septum pellucidum, now measurin g 6 mm. Ventricles: Interval repositioning of right frontal [employer] shunt catheter, tip of which is now surrounded by clot in the anterior horn of the right lateral ventricle. Stable acute right basal ganglia hemorr ginny with direct extension into the right lateral ventricle which is filled with a large amount of cl ot. The clot that was present in the third ventricle is now absent and there is decreased clot in the anterior body of the left lateral ventricle. Slightly increased amount of blood in the dependent lef t lateral ventricle. Stable ventricular size. Bones/joints: Fracture deformity of the medial wall of the right orbit. Sinuses: Opacification of the right frontal sinus and right anterior ethmoid air cells as well as flu id level in the right maxillary sinus, compatible with sinusitis. Mastoid air cells: Normal as visualized. No mastoid effusion. Soft tissues: Normal. IMPRESSION: 1. Interval repositioning of right frontal [employer] shunt catheter, tip of which is now surrounded by clot in the anterior horn of the right lateral ventricle. 2. Trace subarachnoid hemorrhage in the left parietal lobe. 3. Sinusitis. 4. Slightly increased focal leftward midline shift at the septum pellucidum, now measuring 6 mm. Thank you for allowing us to participate in the care of your patient. Dictated and Authenticated by: Wan Renee MD 10/15/2018 3:50 AM Central Time ([place] & [place]) FINAL REPORT HEAD CT WITHOUT CONTRAST: Date: 10/15/18 HISTORY: Follow-up intracranial hemorrhage and hydrocephalus. COMPARISON: 10/09/18. FINDINGS/IMPRESSION: This report is in agreement with the preliminary report by Jonathan. There has been interval repositionin g of the [employer] shunt catheter with the distal tip now at the frontal horn of the right lateral ventricle . There is persistent intracranial hemorrhage. There is worsening right to left subfalcine herniation , currently measuring approximately 3.0 mm at the level of the frontal horns (previously measuring 2. 0 mm). POS: TERRYH
[2018-10-15] MEDS: Carvedilol 25 MG TAB PO SCH (08:32)
--- NOTE | 2018-10-15 08:32 | PRG ---
DATE OF SERVICE: 10/15/2018 SUBJECTIVE: Mr. Felton this morning apparently has been made a DNR by his family. He is still intubated. Unfortunately, also has become minimally responsive. He is sedated with propofol widely for toleration of the vent. However, he still has essentially no examination. Pupils are fixed at 5 mm each, nonreactive. He is overbreathing the ventilator, but has no reaction to deep pain stimuli, nailbed pressure, or centrally. I get no motor response at all. I do not have an active corneal reflex. Nurse was not available for gag or cough. His blood pressure, according to resident who was in the room as well, had suddenly dropped earlier this morning, right now, sitting around 70 to 75 systolic, which is precipitously less than what it had been while he was sitting anywhere from 130 to 160 systolic. His drain continues to put out as well as denying trach and PEG. We will await family's decision in terms of the next course of action, which very well could be extubation and transition to hospice, which I would fully support given this morning. From neurosurgical standpoint, there is nothing else that we could add. We will await family's decision later this morning. Job ID: [id number]
[2018-10-15] MEDS: Amlodipine 10 MG TAB PO SCH (08:33)
[2018-10-15] MEDS: Famotidine 20 MG TAB PO SCH (08:33)
[2018-10-15] MEDS: cloNIDine 0.1 MG TAB PO SCH (08:33)
[2018-10-15 08:34] VITALS: BP 55/33
[2018-10-15] MEDS ORDERED: Morphine 4 MG/ML VIAL SLOW IVP PRN (08:47)
--- NOTE | 2018-10-15 10:30 | PRG ---
DATE OF SERVICE: 10/15/2018 SUBJECTIVE: Yeny Felton is a 63-year-old gentleman, who became hypotensive this morning. OBJECTIVE: VITAL SIGNS: Blood pressure 53/31, pulse 52, sats 85% on 70% FiO2, respirations 20, he is agonal. His blood pressure has started dropping since 5 o'clock this morning. HEAD: CT of head was obtained, which shows subarachnoid hemorrhage, white matter edema, midline shift increased. CHEST: Extensive rhonchi. CARDIAC: Normal S1, S2. No gallops. ABDOMEN: Soft. LABORATORY DATA: PO2 is a 50, pC02 30, pH7.32. IMPRESSION: Multiorgan failures, intracerebral hemorrhage, alcohol abuse, hypertension, renal failure. PLAN: Family wants comfort care. We will extubate when everybody arrives. TIME SPENT: 1 hour for critical time. Job ID: [id number]
--- NOTE | 2018-10-15 10:37 | PRG ---
DATE OF SERVICE: 10/14/2018 ADDENDUM: This is an addendum to the note of Dr. Lissett Alamo. Mr. Olivo is a 63-year-old man, who was admitted several days ago with an intracranial hemorrhage. Earlier this morning, he had a respiratory arrest secondary to a large mucus plug and subsequently intubated and sedated. He is currently stable on the ventilator and we will continue to follow with the intensive care team. His current blood pressure is 100/60 and his last blood gas showed a PO2 of 63, a pCO2 of 32, and pH is 7.29. Job ID: [id number]
--- NOTE | 2018-10-15 11:59 | PRG ---
DATE OF SERVICE: 10/15/2018 Mr. Felton' family has elected for comfort care only. The patient has been extubated, and comfort care measures were instituted only. Job ID: [id number]
--- NOTE | 2018-10-15 12:47 | PDOC.EVN ---
Event Note - Event Note Event Note: 10/14 at appx 7:15 AM Called by nursing regarding patient's BP dropping down into the 70's. Based on discussion with family yesterday, patient's code status DNR. Called December, the father's contact regarding BP's. Advised her and her siblings to make their way to the hospital. Asked if they would want patient to be on pressors to help raise BP, and patient's daughter declined, stating "I'd rather let things go naturally". She informed me that she was calling all of her siblings and that they would be there to see him. She did not want any further measures. Spoke with daughter on arrival. We discussed the above. She states that they would like to withdrawal care when all of the siblings are present. Patient pronounced at 9:48 AM by nurse. All children were by bedside.
--- NOTE | 2018-10-22 16:27 | DIS ---
DATE OF ADMISSION: 10/08/2018 DATE OF DISCHARGE: 10/15/2018 SUMMARY: HOSPITAL COURSE: Mr. Felton was a 63-year-old man, who was admitted to [facility] by Dr. Tito Majano on October 08, 2018 for large basal ganglia hemorrhage in the right hemisphere as well as extensive intraventricular hemorrhage. He was initially admitted with a GCS of 3T and was intubated in the emergency department in [place] before transfer to [facility]. An EVD was placed and this was capped until his expiration on October 15, 2018. Consultations were ordered to Pulmonary Critical Care, the Hospitalist Service, and the Family Medicine. Repeat imaging studies were ordered in the form of head CTs on the and on the . All of which showed persistent hemorrhage with midline shift. He was extubated at one point on October 11, but then had to be re-intubated in the morning of the for respiratory failure. The patient, at that point, never recovered neurologically and worsened to be a point where he was essentially unresponsive. Palliative Care was consulted and the patient's family move forward with withdrawal of care and comfort care service only and then after terminal extubation on October 15, 2018, the patient quickly thereafter. Job ID: [id number]
== END 2018-10-15 09:48 | disposition expired | DRG 23 ==
LOC: ERS 17:44 → CCU 18:53
PROVIDERS: ADMIT Neurological Surgery; ATTEND Neurological Surgery
PROC: 009630Z Drainage of Cerebral Ventricle with Drainage Device, Percutaneous Approach (ICD-10-PCS; principal; 2018-10-08)
PROC: 5A1955Z Respiratory Ventilation, Greater than 96 Consecutive Hours (ICD-10-PCS; 2018-10-08)
PROC: 0DH67UZ Insertion of Feeding Device into Stomach, Via Natural or Artificial Opening (ICD-10-PCS; 2018-10-13)
PROC: 3E0G76Z Introduction of Nutritional Substance into Upper GI, Via Natural or Artificial Opening (ICD-10-PCS; 2018-10-13)
PROC: 0BC38ZZ Extirpation of Matter from Right Main Bronchus, Via Natural or Artificial Opening Endoscopic (ICD-10-PCS; 2018-10-14)
DX: I61.0 Nontraumatic intracerebral hemorrhage in hemisphere, subcortical (principal); J96.90 Respiratory failure, unspecified, unspecified whether with hypoxia or hypercapnia; T17.890A Other foreign object in other parts of respiratory tract causing asphyxiation, initial encounter; E87.1 Hypo-osmolality and hyponatremia; G81.94 Hemiplegia, unspecified affecting left nondominant side; N17.9 Acute kidney failure, unspecified; E87.2 Acidosis; I61.5 Nontraumatic intracerebral hemorrhage, intraventricular; Z51.5 Encounter for palliative care; I10 Essential (primary) hypertension; Z91.14 Patient's other noncompliance with medication regimen; F10.10 Alcohol abuse, uncomplicated; J44.9 Chronic obstructive pulmonary disease, unspecified; D53.9 Nutritional anemia, unspecified; Z66 Do not resuscitate; E87.6 Hypokalemia; E87.8 Other disorders of electrolyte and fluid balance, not elsewhere classified
CPT/HCPCS: 36415; 36416; 51702; 70450; 71045; 80048; 80053; 80306; 80307; 81003; 81015; 82805; 84075; 84450; 84460; 84484; 85025; 85610; 85730; 86850; 86900; 86901; 87070; 87077; 87186; 87205; 87324; 87449; 90471; 90715; 93005; 94002; 94003; 94640; 96365; 96366; 96374; 96375; J2060; J2250; J2270; J2704; J3480; J7050; J7608; J7620; P9045; S0028